=== PATIENT | female | born 1975 | race Caucasian/White ===

== ENCOUNTER 2019-07-07 06:00 | Outpatient (RCR) | payer OTHER, SELFPAY | END 2019-08-06 00:01 | LOC: SPT 06:00 | PROVIDERS: Family Provider Family Medicine; Visit Provider Nurse Practitioner Family | DX: M47.814 Spondylosis without myelopathy or radiculopathy, thoracic region (principal); M79.18 Myalgia, other site | CPT/HCPCS: 97110 ×3; 97112 ×2; 97140 ×7; 97164 ==

== ENCOUNTER 2019-08-07 06:00 | Outpatient (RCR) | payer OTHER, SELFPAY | END 2019-09-06 23:59 | disposition home or self-care (01) | LOC: SPT 06:00 | PROVIDERS: Family Provider Family Medicine; Referring Provider Nurse Practitioner Family; Visit Provider Nurse Practitioner Family | DX: M47.814 Spondylosis without myelopathy or radiculopathy, thoracic region (principal); M79.18 Myalgia, other site | CPT/HCPCS: 97110; 97112; 97140; 97164 ==

== ENCOUNTER 2019-09-07 06:00 | Outpatient (RCR) | payer OTHER, SELFPAY | END 2019-10-05 23:59 | disposition home or self-care (01) | LOC: SPT 06:00 | PROVIDERS: Family Provider Family Medicine; Referring Provider Nurse Practitioner Family; Visit Provider Nurse Practitioner Family | DX: M47.814 Spondylosis without myelopathy or radiculopathy, thoracic region (principal); M79.18 Myalgia, other site | CPT/HCPCS: 97110; 97112; 97164 ==

== ENCOUNTER 2019-10-06 06:00 | Outpatient (RCR) | payer OTHER, SELFPAY | END 2019-11-05 23:59 | disposition home or self-care (01) | LOC: SPT 06:00 | PROVIDERS: Family Provider Family Medicine; Referring Provider Nurse Practitioner Family; Visit Provider Nurse Practitioner Family | DX: M47.814 Spondylosis without myelopathy or radiculopathy, thoracic region (principal) | CPT/HCPCS: 97110; 97112 ==

== ENCOUNTER → 2020-03-31 14:54 | Outpatient (BNVA) | payer OTHER, SELFPAY | PROVIDERS: Family Provider Family Medicine; Referring Provider Dermatology; Visit Provider Dermatology | DX: L70.8 Other acne (principal); D22.9 Melanocytic nevi, unspecified; B35.1 Tinea unguium; L85.9 Epidermal thickening, unspecified | CPT/HCPCS: 99203 ==

== ENCOUNTER 2021-12-13 06:00 | Outpatient (RCR) | payer OTHER, SELFPAY | END 2022-01-04 23:59 | disposition home or self-care (01) | LOC: SPT 06:00 | PROVIDERS: PCP Family Medicine; Referring Provider Family Medicine; Visit Provider Family Medicine | DX: M79.672 Pain in left foot (principal) | CPT/HCPCS: 97110; 97161 ==

== ENCOUNTER 2022-01-05 06:00 | Outpatient (RCR) | payer OTHER, SELFPAY | END 2022-02-03 23:59 | disposition home or self-care (01) | LOC: SPT 06:00 | PROVIDERS: PCP Family Medicine; Referring Provider Family Medicine; Visit Provider Family Medicine | DX: M25.572 Pain in left ankle and joints of left foot (principal); M79.672 Pain in left foot | CPT/HCPCS: 97110 ==

== ENCOUNTER 2022-04-07 06:00 | Outpatient (RCR) | payer OTHER, SELFPAY | END 2022-05-06 23:59 | disposition home or self-care (01) | LOC: SPT 06:00 | PROVIDERS: PCP Family Medicine; Referring Provider Family Medicine; Visit Provider Family Medicine | DX: M25.572 Pain in left ankle and joints of left foot (principal); M79.672 Pain in left foot | CPT/HCPCS: 97110 ==

== ENCOUNTER 2022-05-07 06:00 | Outpatient (RCR) | payer OTHER, SELFPAY | END 2022-06-06 23:59 | disposition home or self-care (01) | LOC: SPT 06:00 | PROVIDERS: PCP Family Medicine; Referring Provider Family Medicine; Visit Provider Family Medicine | DX: M62.89 Other specified disorders of muscle (principal) | CPT/HCPCS: 97110 ==

== ENCOUNTER 2022-05-18 06:00 | Outpatient (RCR) | payer OTHER, SELFPAY | END 2022-06-06 23:59 | disposition home or self-care (01) | LOC: SPT 06:00 | PROVIDERS: PCP Family Medicine; Visit Provider Nurse Practitioner Family | DX: M62.89 Other specified disorders of muscle (principal) | CPT/HCPCS: 97110; 97161 ==

== ENCOUNTER 2022-06-07 06:00 | Outpatient (RCR) | payer OTHER, SELFPAY | END 2022-06-27 15:43 | disposition home or self-care (01) | LOC: SPT 06:00 | PROVIDERS: PCP Family Medicine; Referring Provider Family Medicine; Visit Provider Family Medicine | DX: M62.89 Other specified disorders of muscle (principal) | CPT/HCPCS: 97110; 97530 ==

== ENCOUNTER 2022-07-07 06:58 | Outpatient (CLI) | payer OTHER, SELFPAY ==
--- NOTE | 2022-07-07 | MR_ITS ---
WS: [id number] MRI LEFT ANKLE without CONTRAST. COMPARISON: 06/25/2007 Multiplanar, multisequence imaging is performed without contrast. History: LEFT calcaneal pain for 3 months. Prior peroneus tendon repair. Very small amount of edema involving the plantar surface of the calcaneus at the site of the plantar aponeurosis attachment. Increased T2 signal in the lateral plantar aponeurosis. There is a small tear versus fasciopathy. No spur is identified. The Achilles tendon is normal. There is a very small amount of fluid at the tibiotalar joint. Mild na rrowing of the tibiotalar joint. No fractures. The peroneus brevis and longus tendons are normal. Flexor hallucis longus is normal. The extensor and flexor tendon sheaths are normal. No tendon tears are identified. No loose body. Small amount of flu id adjacent to the os trigonum similar to the prior study which can be related to a posterior impinge ment syndrome. Mild increased signal within the tibiotalar ligament is appropriate. MR/MR ankle LT con* [id number] IMPRESSION: 1. Mild plantar fasciitis with a very small tear versus fasciopathy. 2. Small amount of marrow edema at the plantar aponeurosis insertion. 3. Os trigonum with a tiny amount of adjacent fluid. 4. No peroneus tendon abnormality.
== END 2022-07-07 06:59 | disposition home or self-care (01) ==
PROVIDERS: PCP Family Medicine; Visit Provider Nurse Practitioner Family
DX: M79.672 Pain in left foot (principal); R60.0 Localized edema
CPT/HCPCS: 73721

== ENCOUNTER 2022-07-08 07:05 | Outpatient (CLI) | payer OTHER, SELFPAY ==
--- NOTE | 2022-07-08 07:16 | MR_ITS ---
WS: [id number] MRI LUMBAR SPINE NONCONTRAST HISTORY: CHRONIC LOW BACK PAIN WITH SCIATICA COMPARISON: Radiograph 06/02/2022 TECHNIQUE: Sagittal and axial multisequence imaging is submitted. Normal lumbar alignment with no compression fractures or marrow edema. Disc spaces and vertebral body heights are well-preserved. Conus terminates normally at L1-2 disc level. L1-L2: Normal. L2-L3: Mild facet arthritis. No stenosis or disc protrusion. L3-L4: Mild facet arthritis. No stenosis or disc protrusion. L4-L5: Moderate ligamentum flavum hypertrophy and facet arthritis. Increase fluid in the facet joints . Very slight encroachment into the thecal sac. Very minimal central, subarticular recess and foramin al narrowing. L5-S1: Very slight annular disc bulging with moderate ligamentum flavum and facet arthritis. No disc protrusion. Very minimal narrowing of the neural foramina. Negative retroperitoneum. MR/MR lumbar spine wo con* [id number] IMPRESSION: 1. No high-grade central or foraminal stenosis. 2. Moderate facet joint arthritis and ligamentum flavum hypertrophy at L4-5 an d L5-S1. 3. Mild synovitis bilaterally at L4-5. 4. Very minimal central, subarticular recess and foraminal encroachment at L4- 5. 5. Minimal encroachment neural foramina at L5-S1.
== END 2022-07-08 07:06 | disposition home or self-care (01) ==
LOC: RAD 07:06
PROVIDERS: PCP Family Medicine; Visit Provider Nurse Practitioner Family
DX: M79.672 Pain in left foot (principal); M54.42 Lumbago with sciatica, left side; M54.41 Lumbago with sciatica, right side; M47.896 Other spondylosis, lumbar region; M65.88 Other synovitis and tenosynovitis, other site
CPT/HCPCS: 72148

== ENCOUNTER 2022-08-07 06:00 | Outpatient (RCR) | payer OTHER, SELFPAY | END 2022-09-06 23:59 | disposition home or self-care (01) | LOC: SPT 06:00 | PROVIDERS: PCP Family Medicine; Visit Provider Podiatrist Foot & Ankle Surgery | DX: M72.2 Plantar fascial fibromatosis (principal) | CPT/HCPCS: 97110; 97161 ==

== ENCOUNTER 2022-09-07 06:00 | Outpatient (RCR) | payer OTHER, SELFPAY | END 2022-10-04 23:59 | disposition home or self-care (01) | LOC: SPT 06:00 | PROVIDERS: PCP Family Medicine; Visit Provider Podiatrist Foot & Ankle Surgery | DX: M72.2 Plantar fascial fibromatosis (principal); M79.672 Pain in left foot | CPT/HCPCS: 97110 ==

== ENCOUNTER 2022-10-05 06:00 | Outpatient (RCR) | payer OTHER, SELFPAY | END 2022-11-04 23:59 | disposition home or self-care (01) | LOC: SPT 06:00 | PROVIDERS: PCP Family Medicine; Visit Provider Podiatrist Foot & Ankle Surgery | DX: M72.2 Plantar fascial fibromatosis (principal); M79.672 Pain in left foot | CPT/HCPCS: 97110 ==

== ENCOUNTER 2022-10-12 18:37 | Emergency (ER) | payer OTHER, SELFPAY ==
[2022-10-12 20:04] VITALS: BP 131/86; PULSE 96; RESP 18; TEMP 36.7; O2SAT 99; BMI 33.2
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
[2022-10-12 21:01] VITALS: BP 135/99; PULSE 103; RESP 17; TEMP 36.6; O2SAT 98
[2022-10-12 23:18] VITALS: BP 135/99; PULSE 103; RESP 17; TEMP 36.6; O2SAT 98
== END 2022-10-12 21:01 | disposition home or self-care (01) ==
PROVIDERS: Emergency Provider Nurse Practitioner Family; PCP Family Medicine
DX: S29.012A Strain of muscle and tendon of back wall of thorax, initial encounter (principal); S16.1XXA Strain of muscle, fascia and tendon at neck level, initial encounter; V89.2XXA Person injured in unspecified motor-vehicle accident, traffic, initial encounter
CPT/HCPCS: 99282

== ENCOUNTER 2022-11-02 06:00 | Outpatient (RCR) | payer OTHER, SELFPAY | END 2022-11-04 23:59 | disposition home or self-care (01) | LOC: SPT 06:00 | PROVIDERS: Visit Provider Family Medicine | DX: M54.50 Low back pain, unspecified (principal) | CPT/HCPCS: 20560; 97161 ==

== ENCOUNTER 2022-11-05 06:00 | Outpatient (RCR) | payer OTHER, SELFPAY | END 2022-12-04 23:59 | disposition home or self-care (01) | LOC: SPT 06:00 | PROVIDERS: PCP Family Medicine; Visit Provider Family Medicine | DX: M54.50 Low back pain, unspecified (principal) | CPT/HCPCS: 20561; 97110 ==

== ENCOUNTER 2022-12-05 06:00 | Outpatient (RCR) | payer OTHER, SELFPAY | END 2023-01-04 23:59 | disposition home or self-care (01) | LOC: SPT 06:00 | PROVIDERS: PCP Family Medicine; Visit Provider Family Medicine | DX: M54.50 Low back pain, unspecified (principal) | CPT/HCPCS: 20560; 20561; 97110 ==

== ENCOUNTER 2023-01-05 06:00 | Outpatient (RCR) | payer OTHER, SELFPAY | END 2023-02-03 23:59 | disposition home or self-care (01) | LOC: SPT 06:00 | PROVIDERS: PCP Family Medicine; Visit Provider Family Medicine | DX: M54.50 Low back pain, unspecified (principal) | CPT/HCPCS: 20560; 20561; 97110 ==

== ENCOUNTER 2023-01-23 07:55 | Outpatient (CLI) | payer OTHER, SELFPAY ==
--- NOTE | 2023-01-23 08:05 | CT_ITS ---
WS: [id number] CT NECK WITH CONTRAST HISTORY: TOOTHACHE TECHNIQUE: Contiguous 5 mm axial images are performed through the neck with intravenous contrast. Sag ittal and coronal reformats are also submitted. All CT scans at [facility] use at least one o f these dose optimization techniques: automated exposure control; mA and/or kV adjustment per patient size (includes targeted exams where dose is matched to clinical indication); or iterative reconstruc tion. CONTRAST: CONTRAST: Omnipaque 350; 100 mL IV. DLP: 224.97 mGy-cm. COMPARISON: None available. No soft tissue edema or swelling surrounding the RIGHT mandible or maxilla. No subperiosteal abscess. Focal lucency with mild bony expansion in the posterior RIGHT maxilla but no adjacent inflammation. Similar finding on the LEFT side. There is a very tiny 6 mm low-attenuation collection adjacent to th e RIGHT maxilla. Very nonspecific. Could be the residual of a prior treated abscess. There is a focal area of soft tissue thickening measuring 8 mm superficial to the RIGHT parotid gland . This may be a small epidermal cyst or lymph node. This does not extend to the parotid gland. The RI GHT parotid duct is also very mildly prominent and thickened as compared to the LEFT. No stones are i dentified. Nasopharynx, oropharynx, hypopharynx and larynx are unremarkable. No soft tissue masses or abnormal e nhancement. Torus tubarius and fossa of Rosenmuller and parapharyngeal fat are normal. No significant lymphadenopathy is identified. Normal appearance of the thyroid. No acute bone abnormalities. Visualized portions of the skull base demonstrate no abnormalities. Orbits and globes are within norm al limits. No soft tissue masses. Moderate mucoperiosteal retention cyst in the LEFT maxillary sinus. Lung apices are clear. CT/CT neck w con* [id number] IMPRESSION: 1. No subperiosteal abscess. 2. No mandibular fracture. 3. Lucencies in the posterior maxilla, bilateral and probably from prior tooth removal. 4. Adjacent to the posterior RIGHT maxilla is a 6 mm low-attenuation mass whic h could be the residual of a treated abscess. Very nonspecific and no acute inf lammation. 5. RIGHT parotid duct is mildly prominent as compared to the LEFT although the re is no obstruction and no stone at this time. Suspect RIGHT mild chronic paro tiditis. 6. Focal soft tissue, superficial nodule measures 8 mm. Nodule is at the level of the RIGHT parotid gland. Could be a very small lymph node or epidermoid/whitney aceous cyst.
[2023-01-23] MEDS: iohexol 350 mg/mL 500 mL Btl (per mL) IV (08:16)
== END 2023-01-23 07:56 | disposition home or self-care (01) ==
PROVIDERS: PCP Family Medicine; Visit Provider Nurse Practitioner
DX: R93.89 Abnormal findings on diagnostic imaging of other specified body structures (principal); K08.89 Other specified disorders of teeth and supporting structures
CPT/HCPCS: 70491; Q9967

== ENCOUNTER 2023-02-02 07:31 | Outpatient (CLI) | payer OTHER, SELFPAY ==
--- NOTE | 2023-02-02 | MM_ITS ---
WS: [email or web address] BILATERAL SCREENING DIGITAL TOMOSYNTHESIS MAMMOGRAM WITH CAD HISTORY: SCREENING, status post bilateral breast reduction. COMPARISON: 06/11/2019, 06/09/2021 Bilateral CC and MLO views with tomosynthesis and synthetic mammography submitted. Computer aided det ection analyzed. Breast composition: There are scattered areas of fibroglandular density. No suspicious masses, microc alcifications or architectural distortion. Asymmetries and distortion in the upper outer quadrant of each breast are similar to prior study from 2019. As per history bilateral breast reduction. MM/[place] [id number] IMPRESSION: BI-RADS: 2-Benign FOLLOW UP: 1 Year Follow-up
== END 2023-02-02 07:32 | disposition home or self-care (01) ==
PROVIDERS: PCP Family Medicine; Visit Provider Obstetrics & Gynecology
DX: Z12.31 Encounter for screening mammogram for malignant neoplasm of breast (principal)
CPT/HCPCS: 77063; 77067

== ENCOUNTER 2023-02-04 06:00 | Outpatient (RCR) | payer OTHER, SELFPAY | END 2023-03-06 23:59 | disposition home or self-care (01) | LOC: SPT 06:00 | PROVIDERS: PCP Family Medicine; Visit Provider Family Medicine | DX: M54.50 Low back pain, unspecified (principal) | CPT/HCPCS: 20560; 97110 ==

== ENCOUNTER 2023-03-07 06:00 | Outpatient (RCR) | payer OTHER, SELFPAY | END 2023-04-06 23:59 | disposition home or self-care (01) | LOC: SPT 06:00 | PROVIDERS: PCP Family Medicine; Visit Provider Family Medicine | DX: M54.50 Low back pain, unspecified (principal) | CPT/HCPCS: 20560; 20561; 97110 ==

== ENCOUNTER 2023-11-12 09:37 | Emergency (ER) | payer SELFPAY ==
[2023-11-12 09:38] VITALS: PULSE 103; RESP 18; TEMP 36.6; O2SAT 98; BMI 35.4
[2023-11-12 09:46] VITALS: BP 153/109; PULSE 116; RESP 22; O2SAT 100
--- NOTE | 2023-11-12 09:50 | ED_ITS ---
HPI - Female Genitourinary General: Chief complaint: Urogenital-Female Stated complaint: trouble urinating Time Seen by Provider: 11/12/23 09:48 Source: patient Mode of arrival: ambulatory Limitations: no limitations History of Present Illness: Patient is a nice 48-year-old female presents to ED today with a complaint of urinary symptoms. She states over the past 2 days she has had extreme burning w ith urination, suprapubic burning pain, urinary urgency, frequency with small voids, urinary hesitancy. She has no complaints of back or flank pain. No vomiting. Patient states she has been using Pyridium at home. No history of frequent UTIs. No history of kidney or ureterolithiasis. No vaginal discharge, odor, itching, or concern for STI. MD elicited complaint: dysuria, UTI and difficulty urinating Onset (ago): day(s) Severity: severe Female Urogenital Radiation: Suprapubic Quality of pain: burning Consistency: constant Vaginal discharge: none Vaginal bleeding: none Urinary symptoms: Difficulty Urinating, Dysuria, Frequency and Urgency Exacerbating factors: urination Relieving factors: none Associated symptoms: Reports nausea; Deny abdominal pain Treatment prior to arrival: other (Pyridium) Patient : No Review of Systems Const: Denies: fever(s), chills, body aches, fatigue or malaise GI: Reports: nausea; Denies: abdominal pain, vomiting or change in bowel habits : Reports: difficulty voiding, dysuria, urinary frequency, urinary urgency, urinary hesitancy and dribbling; Denies: flank pain or pelvic pain Musc: Denies: back pain Skin/Breast: Denies: rash PFSH ED PFSH: Medical History Misbah disease Surgical History H/O knee surgery History of nasal surgery Hx of breast reduction, elective Family History Other Squamous cell cancer of external ear Social History Smoking and tobacco/nicotine status: never used tobacco/nicotine Alcohol intake: current Alcohol intake frequency: few times a month Physical Exam Const: COMMON NORMALS: patient oriented x3, no limitations, alert and well nourished GENERAL APPEARANCE: cooperative and in distress (appears uncomfortable-reporting suprapubic discomfort) Resp: COMMON NORMALS: normal respiratory effort and clear to auscultation bilaterally AUSCULTATION: clear to auscultation bilaterally Cardio: COMMON NORMALS: regular rhythm RATE: tachycardic RHYTHM: regular rhythm GI: COMMON NORMALS: Normal to inspection, nondistended, normoactive bowel sounds present, Soft to palpation, No hepatosplenomegaly present and no masses INSPECTION: Yes normal to inspection PALPATION: Yes Soft to palpation, Yes Tenderness to palpation present (GI) (suprapubic), No Guarding due to palpation present (GI), No Rigid due to palpation and Yes No hepatosplenomegaly present : COMMON NORMALS: Yes no CVA tenderness BLADDER/KIDNEY EXAM: Yes no CVA tenderness Back/Pelvis: COMMON NORMALS: no CVA tenderness Neuro: COMMON NORMALS: patient oriented x3 SENSORIUM/ORIENTATION: Yes alert Course Vital Signs: Vital signs: Vital Signs Temperature 97.9 F 11/12/23 09:38 Pulse Rate 116 H 11/12/23 09:46 Respiratory Rate 22 H 11/12/23 09:46 Blood Pressure 153/109 11/12/23 09:46 Pulse Oximetry 100 11/12/23 09:46 Oxygen Delivery Me thod Room Air 11/12/23 09:46 MDM - Female Medical Decision Making Significant color interference on patient's urine secondary to her Pyridium use. Patient's symptoms are consistent with acute cystitis. She is not having any back or flank pain. No fevers or vomiting. Patient was given IM Rocephin and will be placed on Keflex. Return to ED precautions given. Patient was initially tachycardic upon arrival and visibly uncomfortable. On reassessment heart rate has improved and she clinically appears more comfortable after IM Toradol. History does not seem consistent with a nephro/ureterolithiasis. Bladder scan was normal. Medical Records I reviewed the patient's medical records. Lab Data I reviewed the patient's lab results. Laboratory Results HCG, Qual Negative (Negative) 11/12/23 10:12 Urine Color Dutton (Yellow) A 11/12/23 10:12 Urine Appearance Clear (CLEAR) 11/12/23 10:12 Urine pH TNP 11/12/23 10:12 Ur Specific Sabin TNP 11/12/23 10:12 Urine Protein TNP 11/12/23 10:12 Urine Glucose (UA) TNP 11/12/23 10:12 Urine Ketones TNP 11/12/23 10:12 Urine Blood TNP 11/12/23 10:12 Urine Nitrate TNP 11/12/23 10:12 Urine Bilirubin TNP 11/12/23 10:12 Prot Sulfosalicylic Acd Negative (Negative) 11/12/23 10:12 Urine Urobilinogen TNP 11/12/23 10:12 Ur Leukocyte Esterase TNP 11/12/23 10:12 Urine RBC None /hpf (0-2) 11/12/23 10:12 Urine WBC 5-10 /hpf (0-5) H 11/12/23 10:12 Ur Squamous Epith Cells 5-10 /hpf (0-5) H 11/12/23 10:12 Amorphous Sediment Not Reportable 11/12/23 10:12 Urine Bacteria Trace /hpf (NONE) 11/12/23 10:12 Urine Mucus 1+ /hpf 11/12/23 10:12 No radiology studies performed this visit Discharge Plan Discharge Patient Disposition: Home Clinical Impression: Acute cystitis Qualifiers: Hematuria presence: without hematuria Qualified Code(s): N30.00 - Acute cystitis without hematuria Condition: Stable Prescriptions: New cephalexin 500 mg capsule 500 mg PO Q6H 7 Days Qty: 28 0RF Pyridium 200 mg tablet 200 mg PO Q8H Qty: 6 0RF No Action pantoprazole 40 mg tablet,delayed release (DR/EC) 40 mg PO DAILY PRN (Reason: Acid Reflux) prednisone 5 mg tablet 5 mg PO DAILY alprazolam 0.25 mg tablet 0.25 mg PO TID PRN (Reason: Anxiety) Vitamin D2 1,250 mcg (50,000 unit) capsule 1,250 mcg PO Q7D Rx Instructions: ON MONDAY Linzess 145 mcg capsule 145 mcg PO QAM Discharge Orders: Discharge ED (Routine); Ordered 11/12/23 Ordered By: Renetta Alicea Referrals: Kimo Sanchez MD [Primary Care Provider] - Patient Instructions: Urinary Tract Infection in Women (DC), Dysuria (ED) Activity Restrictions/Additional Instructions: Will antibiotics and start them immediately. Continue to consume plenty of water. You need to return to the emergency department for worsening pain, back/flank pain, repetitive episodes of vomiting, fevers greater than 100.4, inability to hold down your antibiotics, or any other concerns you may have. Coding Level of Care Code ED Manager Research And Development for Vickie Sampson
[2023-11-12] MEDS: ketorolac 60 mg/2 mL INJ IM (10:13)
[2023-11-12 10:21] LABS: HCG Qualitative Urine. Negative (Negative)
[2023-11-12 10:25] LABS: Urine Appearance Clear (CLEAR); Urine Color Orange (Yellow)
[2023-11-12 10:26] LABS: Sulfosalicylic Acid Urine Negative (Negative)
[2023-11-12 10:27] LABS: Add Urine Culture? No; Add Urine Microscopic? YES; Bacteria Urine TRACE /hpf; Mucus Urine 1+ /hpf
[2023-11-12] MEDS: cefTRIAXone 1,000 MG in water for injection-sterile 2.1 ML 2 MG IM (10:45)
--- NOTE | 2023-11-12 10:52 | PC.NURSE ---
BLADDER SCAN PERFORMED. 1 ML URINE HIGHEST READING.
[2023-11-12 11:09] VITALS: BP 134/87; PULSE 98; RESP 16; O2SAT 100
== END 2023-11-12 11:14 | disposition home or self-care (01) ==
PROVIDERS: Emergency Provider Physician Assistant; PCP Family Medicine
DX: N30.00 Acute cystitis without hematuria (principal)
CPT/HCPCS: 81001; 81025; 96372; 99284; J0696; J1885

== ENCOUNTER 2024-06-04 14:04 | Outpatient (RCR) | payer OTHER, SELFPAY | END 2024-06-06 23:59 | disposition home or self-care (01) | LOC: SPT 14:04 | PROVIDERS: Visit Provider Student in an Organized Health Care Education/Training Program | DX: G89.4 Chronic pain syndrome (principal) | CPT/HCPCS: 97161 ==

== ENCOUNTER 2024-06-07 06:00 | Outpatient (RCR) | payer OTHER, SELFPAY | END 2024-07-06 23:59 | disposition home or self-care (01) | LOC: SPT 06:00 | PROVIDERS: Visit Provider Student in an Organized Health Care Education/Training Program | DX: G89.4 Chronic pain syndrome (principal) | CPT/HCPCS: 97110 ==

== ENCOUNTER 2024-07-07 06:00 | Outpatient (RCR) | payer OTHER, SELFPAY | END 2024-08-06 23:59 | disposition home or self-care (01) | LOC: SPT 06:00 | PROVIDERS: Visit Provider Student in an Organized Health Care Education/Training Program | DX: G89.4 Chronic pain syndrome (principal) | CPT/HCPCS: 97110 ==

== ENCOUNTER 2024-08-07 06:00 | Outpatient (RCR) | payer OTHER, SELFPAY | END 2024-09-06 23:59 | disposition home or self-care (01) | LOC: SPT 06:00 | PROVIDERS: Visit Provider Student in an Organized Health Care Education/Training Program | DX: G89.4 Chronic pain syndrome (principal) | CPT/HCPCS: 97110 ==

== ENCOUNTER 2024-09-07 06:30 | Outpatient (RCR) | payer OTHER, SELFPAY | END 2024-10-04 23:59 | disposition home or self-care (01) | LOC: SPT 06:30 | PROVIDERS: Visit Provider Student in an Organized Health Care Education/Training Program | DX: G89.4 Chronic pain syndrome (principal) | CPT/HCPCS: 97110 ==

== ENCOUNTER 2024-10-05 06:00 | Outpatient (RCR) | payer OTHER, SELFPAY | END 2024-11-04 23:59 | disposition home or self-care (01) | LOC: SPT 06:00 | PROVIDERS: Visit Provider Student in an Organized Health Care Education/Training Program | DX: G89.4 Chronic pain syndrome (principal) | CPT/HCPCS: 97110 ==

== ENCOUNTER 2024-11-05 05:00 | Outpatient (RCR) | payer OTHER, SELFPAY | END 2024-12-04 23:59 | disposition home or self-care (01) | LOC: SPT 05:00 | PROVIDERS: PCP Family Medicine; Visit Provider Student in an Organized Health Care Education/Training Program | DX: G89.4 Chronic pain syndrome (principal) | CPT/HCPCS: 97110 ==

== ENCOUNTER 2024-12-05 05:00 | Outpatient (RCR) | payer OTHER, SELFPAY | END 2025-01-04 05:00 | disposition home or self-care (01) | LOC: SPT 05:00 | PROVIDERS: PCP Family Medicine; Visit Provider Student in an Organized Health Care Education/Training Program | DX: G89.4 Chronic pain syndrome (principal) | CPT/HCPCS: 97110 ==

== ENCOUNTER 2025-01-05 05:00 | Outpatient (RCR) | payer OTHER, SELFPAY | END 2025-01-14 08:21 | disposition home or self-care (01) | LOC: SPT 05:00 | PROVIDERS: PCP Family Medicine; Visit Provider Student in an Organized Health Care Education/Training Program | DX: G89.4 Chronic pain syndrome (principal) | CPT/HCPCS: 97110 ==

== ENCOUNTER 2025-01-07 07:52 | Outpatient (CLI) | payer OTHER, SELFPAY ==
--- NOTE | 2025-01-07 08:05 | NM_ITS ---
WS: [id number] NUCLEAR MEDICINE HIDA SCAN CLINICAL INFORMATION: ABD PAIN, NAUSEA TECHNIQUE: Following intravenous administration of 7.9 mCi of technetium 99m mebrofenin, images of the abdomen were obtained over the course of 60 minutes. Next, gallbladder ejection fraction was determined by obtaining preprandial and one-hour postprandial images of the gallbladder following oral ingestion of Ensure. FINDINGS: Normal hepatic uptake at 5 minutes. Normal hepatic excretion. Gallbladder is visualized by 10 minutes. No evidence of acute cholecystitis. Small bowel and common bile duct are visualized. Gallbladder ejection fraction 30% compatible with gallbladder dysfunction. Recommend correlation for chronic cholecystitis. NM/NM hepatobiliary w phar* [id number] IMPRESSION: 1. No evidence of acute cholecystitis. 2. Gallbladder ejection fraction decreased at 30% compatible with gallbladder dysfunction. Recommend correlation with history of gallbladder dysfunction and chronic cholecystitis. Gallbladder could be further evaluated with ultrasound. No recent ultrasound available. Comparison 2010 HIDA scan now available also demonstrated decreased gallbladder ejection fraction at 30%. Findings are similar compared to 2010.
== END 2025-01-07 07:53 | disposition home or self-care (01) ==
PROVIDERS: PCP Family Medicine; Visit Provider Family Medicine
DX: R10.13 Epigastric pain (principal); R93.3 Abnormal findings on diagnostic imaging of other parts of digestive tract
CPT/HCPCS: 78227; A9537

== ENCOUNTER 2025-02-17 16:23 | Outpatient (CLI) | payer OTHER, SELFPAY ==
--- NOTE | 2025-02-17 16:29 | CT_ITS ---
WS: [id number] CT ABDOMEN AND PELVIS WITH CONTRAST HISTORY: UNSPECIFIED ABDOMINAL PAIN TECHNIQUE: Imaging performed of the abdomen and pelvis with IV contrast. Single phase imaging of the abdomen. Coronal and sagittal reformats are submitted. All CT scans at [facility] use at least one of these dose optimization techniques: automated exposure control; mA and/or kV adjustment per patient size (includes targeted exams where dose is matched to clinical indication); or iterative reconstruction. IV CONTRAST: Omnipaque 350; 100 mL IV. Oral contrast: No DLP: 712.19 mGy.cm COMPARISON: 04/22/2010, ultrasound 01/29/2025 Lower thorax: Lung bases are clear. Heart is normal size. No hiatal hernia. Liver/biliary system: Normal size with no intrahepatic dilatation. Gallbladder: Gallbladder is slightly contracted with no adjacent inflammation. This may be due to a nonfasting state. Pancreas: No change in appearance of the pancreas. There is a very tiny low- attenuation area in the pancreatic head which may be fat. This was also present on the study from 2009. Spleen: Normal size spleen. No mass or infarct. Adrenal glands: Normal. Right kidney: Normal. Left kidney: Normal. Aorta: Normal. Lymphadenopathy: None. Free fluid: None. GI tract: High density foci within the stomach may be medicinal tablets. No GI tract obstruction. Normal appendix. Mild diffuse constipation. No obstructing lesions are identified. Abdominal wall: Fat-containing umbilical hernia. Orifice measures 1.6 cm. Pelvis: No free fluid or adenopathy within the pelvis. Normal position of the uterus. Small bilateral ovarian follicles. Bones: LEFT unilateral L5 pars defect. CT/CT abdomen pelvis w con* [id number] IMPRESSION: 1. No GI tract obstruction. Mild diffuse constipation. 2. Normal appendix. 3. No renal obstruction. 4. Gallbladder is slightly contracted which is probably due to a nonfasting st ate. No additional abnormal findings to suggest acute cholecystitis. 5. Small umbilical hernia containing fat only.
[2025-02-17] MEDS: iohexol 350 mg/mL 500 mL Btl (per mL) IV (16:40)
== END 2025-02-17 16:24 | disposition home or self-care (01) ==
LOC: RAD 16:24
PROVIDERS: PCP Family Medicine; Visit Provider Family Medicine
DX: K42.9 Umbilical hernia without obstruction or gangrene (principal); K59.00 Constipation, unspecified
CPT/HCPCS: 74177

== ENCOUNTER → 2025-04-09 08:18 | Outpatient (BNVA) | payer OTHER, SELFPAY | PROVIDERS: PCP Family Medicine; Visit Provider Student in an Organized Health Care Education/Training Program | DX: M25.562 Pain in left knee (principal); M17.12 Unilateral primary osteoarthritis, left knee; Z01.89 Encounter for other specified special examinations | CPT/HCPCS: 73560; 73565 ==

== ENCOUNTER 2025-06-17 14:56 | Emergency (ER) | payer OTHER, SELFPAY ==
--- OUTSIDE RECORDS SUMMARY | 2024-06-02 03:00 | XMS_ITS ---
Author Organization [facility] Address [address] [place] [address] Care Team Providers Care Software Implementation Specialist Name Role Phone Kimo Sanchez Primary Care Provider Unavailabl e Amee Barker Unavailable [phone] Migration, Provider Unavailable Unavailable REASON FOR VISIT EMR-Lee Encounters Encounter Location Date Provider Diagnosis Migrated_Facility 0 0 06/02/2024 Provider Migration Plan Of Treatment No Information Progress Notes * [facility]LEY SophiaB:1975 ([age] yo F)Acc No.[id number]:06/02/2024 Patient: Lisa VELASQUEZ :1975 A ge:48 Y S ex:Female Address:[address] [place], [address] Subjective: * Chief Complaints: * E MR-Lee * * Date:
--- OUTSIDE RECORDS SUMMARY | 2024-08-18 08:03 | XMS_ITS ---
Author Organization [facility] Address [address] [place] [address] Care Team Providers Care Real Estate Clerk Name Role Phone Kimo Sanchez Primary Care Provider Amee Dangelo [phone] REASON FOR VISIT prechart Social History Tobacco Use: Social History Observation Description Date Details (start date - stop date) Never Smoker NA - NA Social History Tobacco Use: Social Info Question Answer Notes Tobacco Control (Standard) Tobacco use: Nonsmoker Additional Details Category Social Info Options Details Drugs/Alcohol: Do you drink alcohol? Yes. 2-3 drinks per week Problems Problem Type SNOMED Code ICD Code Onset Dates Problem Status W/U Status Risk Notes Problem Chronic pain syndrome (511620727) Chronic pain syndrome (G89.4) Active confirmed Problem Lumbosacral radiculopathy (1808889) Radiculopathy of lumbosacral region (M54.17) Active confirmed Encounters Encounter Location Date Provider Diagnosis [facility] [address] [place] [place] [address] 08/18/2024 Amee villeda Chronic pain syndrome G89.4 ; Radiculopathy of lumbosacral region M54.17 ; Synovial cyst of lumbar facet joint M71.38 ; Impaired mobility and activities of daily living Z74.09 ; Disorders of sacrum M53.3 ; Acute pain of right hip M25.551 and Myalgia, other site M79.18 Assessments Encounter Date Diagnosis (ICD Code) Assessment Notes Treatment Notes Treatment Clinical Notes Section Notes 08/18/2024 Chronic pain syndrome (ICD-10 - G89.4) Ms. Sutton is a very pleasant patient that has imaging, history, and physical exam consistent with pain generated from radiculopathy of the lumbosac ral region. Patient has tried conservative measures including medication with limited benefit including medications to include gabapentin if they could tolerate it and physical therapy including home exercise regimen under a physician?s guidance for at least 6 weeks. They have had a decrease in their quality of life as a result of this pain. This pain is impairing their ability to perform ADLs and care for their family. This pain is also interfering with their ability to work. They now have had to increase their medication use. It is medically necessary to proceed with this procedure, risks and expectations of the procedure where discussed with the patient and they agreed to proceed. The options for treatment were explained in detail, this included PT, medications, injections, lifestyle modifications and exercise. Proceed a right L4/5 facet joint cyst aspiration with a right L4/5 transforaminal epidural steroid injection after reviewing the disc 08/18/2024 Radiculopathy of lumbosacral region (ICD-10 - M54.17) Ms. Sutton is a very pleasant patient that has imaging, history, and physical exam consistent with pain generated from radiculopathy of the lumbosac ral region. Patient has tried conservative measures including medication with limited benefit including medications to include gabapentin if they could tolerate it and physical therapy including home exercise regimen under a physician?s guidance for at least 6 weeks. They have had a decrease in their quality of life as a result of this pain. This pain is impairing their ability to perform ADLs and care for their family. This pain is also interfering with their ability to work. They now have had to increase their medication use. It is medically necessary to proceed with this procedure, risks and expectations of the procedure where discussed with the patient and they agreed to proceed. The options for treatment were explained in detail, this included PT, medications, injections, lifestyle modifications and exercise. Proceed a right L4/5 facet joint cyst aspiration with a right L4/5 transforaminal epidural steroid injection after reviewing the disc 08/18/2024 Synovial cyst of lumbar facet joint (ICD-10 - M71.38) Ms. Sutton is a very pleasant patient that has imaging, history, and physical exam consistent with pain generated from radiculopathy of the lumbosac ral region. Patient has tried conservative measures including medication with limited benefit including medications to include gabapentin if they could tolerate it and physical therapy including home exercise regimen under a physician?s guidance for at least 6 weeks. They have had a decrease in their quality of life as a result of this pain. This pain is impairing their ability to perform ADLs and care for their family. This pain is also interfering with their ability to work. They now have had to increase their medication use. It is medically necessary to proceed with this procedure, risks and expectations of the procedure where discussed with the patient and they agreed to proceed. The options for treatment were explained in detail, this included PT, medications, injections, lifestyle modifications and exercise. Proceed a right L4/5 facet joint cyst aspiration with a right L4/5 transforaminal epidural steroid injection after reviewing the disc 08/18/2024 Impaired mobility and activities of daily living (ICD-10 - Z74.09) Ms. Sutton is a very pleasant patient that has imaging, history, and physical exam consistent with pain generated from radiculopathy of the lumbosac ral region. Patient has tried conservative measures including medication with limited benefit including medications to include gabapentin if they could tolerate it and physical therapy including home exercise regimen under a physician?s guidance for at least 6 weeks. They have had a decrease in their quality of life as a result of this pain. This pain is impairing their ability to perform ADLs and care for their family. This pain is also interfering with their ability to work. They now have had to increase their medication use. It is medically necessary to proceed with this procedure, risks and expectations of the procedure where discussed with the patient and they agreed to proceed. The options for treatment were explained in detail, this included PT, medications, injections, lifestyle modifications and exercise. Proceed a right L4/5 facet joint cyst aspiration with a right L4/5 transforaminal epidural steroid injection after reviewing the disc 08/18/2024 Disorders of sacrum (ICD-10 - M53.3) Ms. Sutton is a very pleasant patient that has imaging, history, and physical exam consistent with pain generated from radiculopathy of the lumbosac ral region. Patient has tried conservative measures including medication with limited benefit including medications to include gabapentin if they could tolerate it and physical therapy including home exercise regimen under a physician?s guidance for at least 6 weeks. They have had a decrease in their quality of life as a result of this pain. This pain is impairing their ability to perform ADLs and care for their family. This pain is also interfering with their ability to work. They now have had to increase their medication use. It is medically necessary to proceed with this procedure, risks and expectations of the procedure where discussed with the patient and they agreed to proceed. The options for treatment were explained in detail, this included PT, medications, injections, lifestyle modifications and exercise. Proceed a right L4/5 facet joint cyst aspiration with a right L4/5 transforaminal epidural steroid injection after reviewing the disc 08/18/2024 Acute pain of right hip (ICD-10 - M25.551) Ms. Sutton is a very pleasant patient that has imaging, history, and physical exam consistent with pain generated from radiculopathy of the lumbosac ral region. Patient has tried conservative measures including medication with limited benefit including medications to include gabapentin if they could tolerate it and physical therapy including home exercise regimen under a physician?s guidance for at least 6 weeks. They have had a decrease in their quality of life as a result of this pain. This pain is impairing their ability to perform ADLs and care for their family. This pain is also interfering with their ability to work. They now have had to increase their medication use. It is medically necessary to proceed with this procedure, risks and expectations of the procedure where discussed with the patient and they agreed to proceed. The options for treatment were explained in detail, this included PT, medications, injections, lifestyle modifications and exercise. Proceed a right L4/5 facet joint cyst aspiration with a right L4/5 transforaminal epidural steroid injection after reviewing the disc 08/18/2024 Myalgia, other site (ICD-10 - M79.18) Ms. Sutton is a very pleasant patient that has imaging, history, and physical exam consistent with pain generated from radiculopathy of the lumbosac ral region. Patient has tried conservative measures including medication with limited benefit including medications to include gabapentin if they could tolerate it and physical therapy including home exercise regimen under a physician?s guidance for at least 6 weeks. They have had a decrease in their quality of life as a result of this pain. This pain is impairing their ability to perform ADLs and care for their family. This pain is also interfering with their ability to work. They now have had to increase their medication use. It is medically necessary to proceed with this procedure, risks and expectations of the procedure where discussed with the patient and they agreed to proceed. The options for treatment were explained in detail, this included PT, medications, injections, lifestyle modifications and exercise. Proceed a right L4/5 facet joint cyst aspiration with a right L4/5 transforaminal epidural steroid injection after reviewing the disc Plan Of Treatment No Information History and Physical Notes * HPI (History of Present Illness) Category Sub-Category Detail Notes Category Not es Provider Note (05/21/2024) Patient presents today for re-evaluation. On 04/16/2024, she had a right SI joint injection, and she reports minimal relief from the procedure. However, upon SI provocative maneuvers, she does not experience any pain in the SI joint anymore. Pain is in her lower back that radiates into her right anterior thigh that has changed since the procedure. She denies any bowel or bladder incontinence. Reviewing her MRI, she has a synovial cyst at the right 4-5 facet measuring 5 mm, which narrows the right lateral recess and abuts the transitioning right L5 nerve root. This potentially could be a source of her pain. She will bring in the disc for me to be able to look at that cyst more closely. Pain Details Pain Location lower back Quality Aching, Burning, Radha p, Throbbing Severity of average pain 4/10 Severity of pain right now 4/10 Opioid Assessment Tools [facility] ption Monitoring Program found to be consistent with treatment history, reviewed today Treatment History When was prior treat ment started? When the home remedies and OTCs did not work Progress Notes * Sophia SUTTONB:1975 ([age] yo F)Acc No.[id number]:08/18/2024 Patient: Lisa VELASQUEZ :1975 A ge:49 Y S ex:Female Address:[address] [place] [address], [id number] Subjective: * Chief Complaints: * P rechart * HPI: P ain Details: Pain Location l ower back . Quality A leandro, Burning, Deep, Throbbing. Severity of average pain 4 /10. Severity of pain right now 4 /10. O pioid Assessment Tools: [place] Prescription Monitoring Program f ound to be consistent with treatment history, reviewed today. T reatment History: When was prior treatment started? W hen the home remedies and OTCs did not work . P marisabel Note: (05/21/2024) Patient presents today for re-evaluation. On 04/16/2024, she had a right SI joint injection, and she reports minimal relief from the procedure. However, upon SI provocative maneuvers, she does not experience any pain in the SI joint anymore. Pain is in her lower back that radiates into her right anterior thigh that has changed since the procedure. She denies any bowel or bladder incontinence. Reviewing her MRI, she has a synovial cyst at the right 4-5 facet measuring 5 mm, which narrows the right lateral recess and abuts the transitioning right L5 nerve root. This potentially could be a source of her pain. She will bring in the disc for me to be able to look at that cyst more closely. * ROS: G eneral - Multi System: Constitutional D enies fever, fatigue, weight gain, weight loss, poor appetite, sleep difficulty . E ar, Nose, Mouth, Throat R eports using corrective lenses/contacts. Denies ringing in ears, ear pain, cataract, headache, glaucome, sore throat.?Cardiovascular d enies chest pain, palpitations, swelling in hands/feet, shortness of breath. R espiratory D enies trouble breathing, cough, asthma, COPD/emphysema, Wheezing, snoring.?Gastrointestinal R eports gastroesophageal reflux. Denies nausea, vomiting, constipation, abdominal pain, diarrhea . G enitourinary D enies incontinence, painful urination, bloody urine, sexual dysfunction, difficulty starting urination. M usculoskeletal R eports back pain, joint pain. Denies neck pain, joint swelling . I ntegumentary D enies rash, ulcer, skin cancer, skin infection . N eurologic D enies headache, weakness, trouble with memory, trouble with concentrating, excessive sedation, gait unsteadiness/falls. P sychiatric?Reports anxiety, Denies depression, insomina, panic attack, suicidal ideation . E ndocrine System D enies excessive thirst, heat or cold intolerance, frequent infections, rheumatoid arthritis, diabetes, lupus, HIV/AIDS. * Family History: cancer, diabetes, high blood pressure. * Social History: T obacco Use: T obacco Control (Standard) T obacco use: N onsmoker D rugs/Alcohol: D o you drink alcohol?: Yes. 2-3 drinks per week. Assessment: * Assessment: 1. C hronic pain syndrome - G89.4 (Primary) 2 . R adiculopathy of lumbosacral region - M54.17 3 . S ynovial cyst of lumbar facet joint - M71.38 ?4. I mpaired mobility and activities of daily living - Z74.09 5 . D isorders of sacrum - M53.3 6 . A cute pain of right hip - M25.551 7 . M yalgia, other site - M79.18 Ms. Sutton is a very pleasant patient that has imaging, history, and physical exam consistent with pain generated from radiculopathy of the lumbosacral region. Patient has tried conservative measures including medication with limited benefit including medications to include gabapentin if they could tolerate it and physical therapy including home exercise regimen under a physician?s guidance for at least 6 weeks. They have had a decrease in their quality of life as a result of this pain. This pain is impairing their ability to perform ADLs and care for their family. This pain is also interfering with their ability to work. They now have had to increase their medication use. It is medically necessary to proceed with this procedure, risks and expectations of the procedure where discussed with the patient and they agreed to proceed. The options for treatment were explained in detail, this included PT, medications, injections, lifestyle modifications and exercise. Proceed a right L4/5 facet joint cyst aspiration with a right L4/5 transforaminal epidural steroid injection after reviewing the disc * * Date:
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
--- NOTE | 2025-06-17 14:58 | ECG_ITS ---
[facility] Test Date: 2025-06-17 Pat Name: Lisa Morrison Department: Room: Gender: Female Special Education Resource Teacher: : 1975 Requested By: Renetta Alicea Order Number: [id number] Reading MD: Measurements Intervals [place] Rate: 126 P: 31 SD: 138 QRS: 54 QRSD: 89 T: 52 QT: 315 QTc: 457 Interpretive Statements SINUS TACHYCARDIA ABNORMAL RHYTHM ECG [email or web address]
[2025-06-17 14:59] VITALS: BP 121/81; PULSE 131; RESP 18; TEMP 36.4; O2SAT 99; BMI 32.5
--- OUTSIDE RECORDS SUMMARY | 2025-06-17 15:04 | XMS_ITS | Encounter Summary ---
Author Organization [facility] Address [address] [place] [address] Care Team Providers Care Senior Civil Engineer Name Role Phone Kimo Sanchez MD Primary Care Provider [phone] Encounter Details Date Type Department Care Team (Latest Contact Info) Description 11/05/2003 Outpatient Historical [facility] [address] [place] [address] Sergio Ruiz MD NO ADDRESS ON FILE JOINT PAIN-L/LEG (Primary Dx) Social History Tobacco Use Types Packs/Day Years Used Date Smoking Tobacco: Never Assessed Comments Unknown Sex and Gender Information Value Date Recorded Sex Assigned at Not on file 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
--- OUTSIDE RECORDS SUMMARY | 2025-06-17 15:04 | XMS_ITS | Encounter Summary ---
Author Organization [facility] Address [address] [place] [address] Care Team Providers Care Electrotyper Apprentice Name Role Phone Kimo Sanchez MD Primary Care Provider [phone] Encounter Details Date Type Department Care Team (Latest Contact Info) Description 09/14/1999 Outpatient Historical [facility] [address] [place] [address] Dago Mackenzie MD [address] [facility] [address] [place] [address] Abdominal pain, generalized (Primary Dx) Social History Tobacco Use Types Packs/Day Years Used Date Smoking Tobacco: Never Assessed Comments Unknown Sex and Gender Information Value Date Recorded Sex Assigned at Not on file 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
--- OUTSIDE RECORDS SUMMARY | 2025-06-17 15:04 | XMS_ITS | Encounter Summary ---
Author Organization [facility] Address [address] [place] [address] Care Team Providers Care Flat Machine Cutter Name Role Phone Kimo Sanchez MD Primary Care Provider [phone] Encounter Details Date Type Department Care Team (Late st Contact Info) Description 10/20/1999 Outpatient Historical [facility] Dago Mackenzie MD [address] 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
--- OUTSIDE RECORDS SUMMARY | 2025-06-17 15:04 | XMS_ITS | Encounter Summary ---
Author Organization [facility] Address [address] [place] [address] Care Team Providers Care Endoscopic Technician Name Role Phone Kimo Sanchez MD Primary Care Provider [phone] Encounter Details Date Type Department Care Team (Latest Contact Info) Description 10/22/2003 Outpatient Historical [facility] [address] [place] [phone] Tom Casillas, Jose R Draper MD NO ADDRESS ON FILE Routine medical exam (Primary Dx); Gynecologic examination Social History Tobacco Use Types Packs/Day Years Used Date Smoking Tobacco: Never Assessed Comments Unknown Sex and Gender Information Value Date Recorded Sex Assigned at Not on file 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
--- OUTSIDE RECORDS SUMMARY | 2025-06-17 15:04 | XMS_ITS | Encounter Summary ---
Author Organization [facility] Address [address] [place] [address] Care Team Providers Care Arcade Attendant Name Role Phone Kimo Sanchez MD Primary Care Provider Encounter Details Date Type Department Care Team (Latest Contact Info) Description 12/19/[address] 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
--- OUTSIDE RECORDS SUMMARY | 2025-06-17 15:04 | XMS_ITS | Encounter Summary ---
Author Organization [facility] Address [address] [place] [address] Care Team Providers Care Wire Cutter Name Role Phone Kimo Sanchez MD Primary Care Provider [phone] Encounter Details Date Type Department Care Team (Latest Contact Info) Description 12/21/1999 Outpatient Historical [facility] [address] [place] [address] Dago Mackenzie MD [address] [facility] [address] [place] [address] Benign neoplasm of skin, site unspecified (Primary Dx) Social History Tobacco Use Types Packs/Day Years Used Date Smoking Tobacco: Never Assessed Comments Unknown Sex and Gender Information Value Date Recorded Sex Assigned at Not on file 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
--- OUTSIDE RECORDS SUMMARY | 2025-06-17 15:04 | XMS_ITS | Encounter Summary ---
Author Organization [facility] Address [address] [place] [address] Care Team Providers Care Canvas Cutter Machine Name Role Phone Kimo Sanchez MD Primary Care Provider [phone] Encounter Details Date Type Department Care Team (Latest Contact Info) Description 12/30/2003 Outpatient Historical [facility] Medicine [address] 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
--- OUTSIDE RECORDS SUMMARY | 2025-06-17 15:04 | XMS_ITS | Encounter Summary ---
Author Organization [facility] Address [address] [place] [address] Care Team Providers Care Failure Analysis Technician Name Role Phone Kimo Sanchez MD Primary Care Provider [phone] Encounter Details Date Type Department Care Team (Late st Contact Info) Description 10/22/2003 Outpatient Historical [facility] FY06 Jose R Santos Jr., MD NO ADDRESS ON FILE Social History Tobacco Use Types Packs/Day Years Used Date Smoking Tobacco: Never Assessed Comments Unknown Sex and Gender Information Value Date Recorded Sex Assigned at Not on file 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
--- OUTSIDE RECORDS SUMMARY | 2025-06-17 15:04 | XMS_ITS | Encounter Summary ---
Author Organization [facility] Address [address] [place] [address] Care Team Providers Care Coloring Checker Name Role Phone Kimo Sanchez MD Primary Care Provider [phone] Encounter Details Date Type Department Care Team (Latest Contact Info) Description 12/18/2003 Outpatient Historical [facility] [place] [address] [place] [phone] Sergio Ruiz MD NO ADDRESS ON FILE PREOP EXAM OTHER SPECIFIED (Primary Dx) Social History Tobacco Use Types Packs/Day Years Used Date Smoking Tobacco: Never Assessed Comments Unknown Sex and Gender Information Value Date Recorded Sex Assigned at Not on file 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
--- OUTSIDE RECORDS SUMMARY | 2025-06-17 15:04 | XMS_ITS | Encounter Summary ---
Author Organization [facility] Address [address] [place] [address] Care Team Providers Care Nursing Assistant Name Role Phone Kimo Sanchez MD Primary Care Provider [phone] Encounter Details Date Type Department Care Team (Latest Contact Info) Description 10/22/2003 Outpatient Historical [facility] Medicine [address] [place] [address] Sergio Ruiz MD NO ADDRESS ON FILE JOINT PAIN-L/LEG (Primary Dx) Social History Tobacco Use Types Packs/Day Years Used Date Smoking Tobacco: Never Assessed Comments Unknown Sex and Gender Information Value Date Recorded Sex Assigned at Not on file 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
--- OUTSIDE RECORDS SUMMARY | 2025-06-17 15:05 | XMS_ITS | Data Portability ---
Author Organization OPAL Romero [facility], [facility] Address [address] [address] Care Team Providers Care Swimming Pool Serviceperson Name Role Phone KALI SANCHEZ Primary Care Provider Assessment No assessment recorded. Plan of Treatment Reminders Order Date Submit Date Provider Last Modified By Organization Details Last Modified Time Details Appointments ACUTE VISIT 2024 02:30P M WALK-IN Not available Not available Not available Lab BMP, serum or plasma 2024 025 [facility], [address] [facility], [address], [address], 02/10/2025 13:50:21 Referral orthopedi c surgeon referral [address], [address] [place] [address], [address], 03/19/2025 15:18:16 Procedures None recorded. Surgeries None recorded. Imaging XR, abdomen, complete 2024 025 [facility] ([facility]), [address] [place], [address], 02/11/2025 09:24:26 CT, abdomen + pelvis, w/ contrast 2024 025 [facility] (Scheduling Orders), [address] [place], [address], 02/17/2025 15:45:50 US, abdomen, complete - [address] 2024 025 [facility] ([facility] [address] [place], [address], 02/02/2025 10:29:12 NM, hepatobil iary scan [address] [facility], [address] [place] [address], [address], 12/18/2024 17:51:18 Medication Orders ondansetr on HCl 4 mg tablet 2024 025 [facility], [address] [place] [address], [address], 01/17/2025 16:44:32 itraconaz ole 100 mg capsule 2024 025 [facility], [address] [place] [address], [address], 03/07/2025 10:33:24 Patient TargetsNo targets recorded. Patient InstructionsNo instructions recorded. Reason for Referral Orthopedic Surgeon Referral for Pain of left knee joint Referring Physician: Kali Sanchez, Family Medicine, Encounter Date: 03/07/2025 Results Created Date Observation Date Name Description Value Unit Range Abnormal Flag Note LastModifiedBy Organization Detail LastModifiedTime 12/06/1912/05/2024 CBC WBC 7.5 x10 4.0-10 .5 Not Available [facility] [address] [facility] [address], [place], [address], 12/05/2024 13:49:12 12/06/1912/05/2024 CBC RBC 4.31 x10 3.50-5 .50 Not Available [facility] [address] [facility] [address], [place], [address], 12/05/2024 13:49:12 12/06/1912/05/2024 CBC HGB 12.9 g/dL 12.0-1 6.0 Not Available [facility] [address] [facility], [place], [address], 12/05/2024 13:49:12 12/06/19 25 12/05/2024 CBC HCT 38.1 % 37.0-4 7.0 Not Available [facility] [address] [facility], [place], [address], 12/05/2024 13:49:12 12/06/1912/05/2024 CBC MCV 88.4 fL 80.0-9 9.9 Not Available [facility] [address] [facility], [place], [address], 12/05/2024 13:49:12 12/06/1912/05/2024 CBC MCH 29.9 pg 27.0-3 2.0 Not Available [facility] [address] [facility], [place], [address], 12/05/2024 13:49:12 12/06/1912/05/2024 CBC MCHC 33.8 g/dL 32.0-3 6.0 Not Available [facility] [address] [facility], [place], [address], 12/05/2024 13:49:12 12/06/1912/05/2024 CBC RDW 13.3 % 11.5-1 4.5 Not Available [facility] [address] [facility], [place], [address], 12/05/2024 13:49:12 12/06/1912/05/2024 CBC plt 293.1 x10 140.0- 451.0 Not Available [facility] [address] [facility], [place], [address], 12/05/2024 13:49:12 12/06/19 25 12/05/2024 CBC lymphocytes % 36.6 % 20.0-5 0.0 Not Available [facility] [address] [facility] [address], [place], [address], 12/05/2024 13:49:12 12/06/19 25 12/05/2024 CBC granulcytes % 54.7 % 30.0-7 0.0 Not Available [facility] [address] [facility] [address], [place], [address], 12/05/2024 13:49:12 12/06/19 25 12/05/2024 CBC monocytes % 5.7 % 2.0-16 .0 Not Available [facility] [address] [address], [place], [address], 12/05/2024 13:49:12 12/06/19 25 12/05/2024 CBC granulcytes# 4.1 x10 Not Abi ilable [facility] [address] [address], [place], [address], 12/05/2024 13:49:12 12/06/19 25 12/05/2024 CBC lymphocytes # 2.7 x10 Not Available [facility] [address] [address], [place], [address], 12/05/2024 13:49:12 12/06/1912/05/2024 CBC monocytes # 0.4 x10 Not Avai lable [facility] [address] [address], [place], [address], 12/05/2024 13:49:12 12/06/19 25 12/05/2024 CMP (FEMA LE) glucose 108.0 mg/dL 60.0-9 9.0 high Not Available [facility] [address] [address], [place], [address], 12/05/2024 14:33:23 12/06/19 25 12/05/2024 CMP (FEMA LE) BUN (blood urea nitrogen) 10.0 mg/dL 10.0-2 6.0 Not Available [facility], [place], [address], 12/05/2024 14:33:23 12/06/19 25 12/05/2024 CMP (FEMA LE) creatinine (serum) 0.8 mg/dL 0.4-1. 5 Not Available [facility] [address] [facility], [place], [address], 12/05/2024 14:33:23 12/06/19 25 12/05/2024 CMP (FEMA LE) BUN/creatini ne ratio 12.50 ratio Not Available [facility] [address] [facility], [place], [address], 12/05/2024 14:33:23 12/06/19 25 12/05/2024 CMP (FEMA LE) eGFR calculated 81.4 Not Available [facility] [address] [facility], [place], [address], 12/05/2024 14:33:23 12/06/19 25 12/05/2024 CMP (FEMA LE) total protein 8.4 g/dL 6.0-8. 5 Not Available [facility] [address] [facility] [address], [place], [address], 12/05/2024 14:33:23 12/06/19 25 12/05/2024 CMP (FEMA LE) total bilirubin 0.4 mg/dL 0.2-1. 3 Not Available [facility] [address] [address], [place], [address], 12/05/2024 14:33:23 12/06/19 25 12/05/2024 CMP (FEMA LE) albumin 4.9 g/dL 3.5-5. 5 Not Available [facility] [address] [facility] [address], [place], [address], 12/05/2024 14:33:23 12/06/19 25 12/05/2024 CMP (FEMA LE) globulin 3.5 calc Not Available [facility] [address] [facility] [address], [place], [address], 12/05/2024 14:33:23 12/06/19 25 12/05/2024 CMP (FEMA LE) AST (SGOT) 25.0 U/L 0.0-46 .0 Not Available [facility] [address] [facility] [address], [place], [address], 12/05/2024 14:33:23 12/06/19 25 12/05/2024 CMP (FEMA LE) altv (SGPT) 20.0 U/L 13.0-6 9.0 normal Not Available [facility] [address] [facility] [address], [place], [address], 12/05/2024 14:33:23 12/06/19 25 12/05/2024 CMP (FEMA LE) A/G ratio 1.4 ratio Not Available [facility] [address] [facility] [address], [place], [address], 12/05/2024 14:33:23 12/06/19 25 12/05/2024 CMP (FEMA LE) ALP phos 52.0 U/L 30.0-1 40.0 normal Not Available [facility] [address] [facility] [address], [place], [address], 12/05/2024 14:33:23 12/06/19 25 12/05/2024 CMP (FEMA LE) calcium 9.8 mg/dL 8.4-10 .5 Not Available [facility] [address] [facility] [address], [place], [address], 12/05/2024 14:33:23 12/06/19 25 12/05/2024 CMP (FEMA LE) sodium 139.0 mmol/ L 136.0- 145.0 Not Available [facility] [address] [facility] [address], [place], [address], 12/05/2024 14:33:23 12/06/19 25 12/05/2024 CMP (FEMA LE) potassium 3.7 mmol/ L 3.5-5. 1 Not Available [facility] [address] [facility] [address], [place], [address], 12/05/2024 14:33:23 12/06/19 25 12/05/2024 CMP (FEMA LE) chloride 105.0 mmol/ L 98.0-1 10.0 normal Not Available [facility] [address] [facility] [address], [place], [address], 12/05/2024 14:33:23 12/06/19 25 12/05/2024 CMP (FEMA LE) C02 22.0 mmol/ L 22.0-3 1.0 Not Available [facility] [address] [facility] [address], [place], [address], 12/05/2024 14:33:23 12/06/19 25 12/05/2024 CMP (FEMA LE) anion gap 12.0 calc Not Available [facility] [address] [facility] [address], [place], [address], 12/05/2024 14:33:23 12/06/19 25 12/05/2024 CMP (FEMA LE) osmolality 286.7 calc Not Available [facility] [address] [facility] [address], [place], [address], 12/05/2024 14:33:23 12/06/19 25 12/05/2024 LIPID PROFI LE (FEMA LE) cholesterol 246.0 mg/dL 0.0-20 0.0 high Not Available [facility] [address] [facility] [address], [place], [address], 12/05/2024 14:33:26 12/06/19 25 12/05/2024 LIPID PROFI LE (FEMA LE) trig 152.0 mg/dL 0.0-15 0.0 high Not Available [facility] [address] [facility] [address], [place], [address], 12/05/2024 14:33:26 12/06/19 25 12/05/2024 LIPID PROFI LE (FEMA LE) HDL - direct 58.0 mg/dL >40.0 Not Available [facility] [address] [facility] [address], [place], [address], 12/05/2024 14:33:26 12/06/19 25 12/05/2024 LIPID PROFI LE (FEMA LE) VLDL - direct 30.4 mg/dL Not Available [facility] [address] [address], [place], [address], 12/05/2024 14:33:26 12/06/19 25 12/05/2024 LIPID PROFI LE (FEMA LE) LDL - direct 157.6 mg/dL 0.0-13 0.0 high Not Available [facility] [address] [address], [place], [address], 12/05/2024 14:33:26 12/06/19 25 12/05/2024 TSH TSH 1.26 uIU/m L 0.49-3 .82 Not Available [facility] [address] [address], [place], [address], 12/05/2024 16:28:46 12/06/19 25 12/06/2024 MAGNE SIUM magnesium 2.3 mg/dL 1.5-2. 5 normal Not Available [facility] [address], [address], 12/06/2024 09:03:24 12/06/19 25 12/10/2024 C-MARIANNA CTIVE PROTE IN C-reactive protein <3.0 mg/L <8.0 normal Not Available [facility] [address], [address], 12/10/2024 14:38:10 12/06/19 25 12/10/2024 FOLAT E, SERUM folate, serum >24.0 NG/mL normal Refer ence Range Low: <3.4 Borde rline : 3.4-5 .4 Shannon l: >5.4 Not Available [facility] [address], [address], 12/10/2024 14:38:11 12/06/19 25 12/10/2024 VITAM IN B12 vitamin B12 606 pg/mL 200-11 00 normal Not Available [facility] [address], [address], 12/10/2024 14:38:12 12/06/19 25 12/10/2024 VITAM IN B6, PLASM A vitamin B6, plasma 50.5 NG/mL 2.1-21 .7 high (Note ) Vitam in suppl ement ation withi n 24 hours prior to blood draw may affec t the accur acy of [facility]. This test was devel oped and its winnie tical perfo rmanc e sara cteri stics have been deter mined by [facility] kristina s. It has not been clear ed or appro suha by the FDA. This assay has been valid ated pursu ant to the CLIA regul ation s and is used for clini desiree purpo ses. MDF med fusio n [address] [facility] [address] [place] [address] [phone] Tona Wilkins MD, PhD Not Available [facility] [address] [place], [address], 12/10/2024 14:38:13 02/11/20 25 02/10/2025 BMP (FEMA LE) glucose 94.0 mg/dL 60.0-9 9.0 Not Available [facility] [address] [facility] [address], [place], [address], 02/10/2025 13:50:21 02/11/20 25 02/10/2025 BMP (FEMA LE) BUN (blood urea nitrogen) 9.0 mg/dL 10.0-2 6.0 low Not Available [facility] [address] [facility] [address], [place], [address], 02/10/2025 13:50:21 02/11/20 25 02/10/2025 BMP (FEMA LE) creatinine (serum) 0.8 mg/dL 0.4-1. 5 Not Available [facility] [address] [facility] [address], [place], [address], 02/10/2025 13:50:21 02/11/20 25 02/10/2025 BMP (FEMA LE) BUN/creatini ne ratio 11.25 ratio Not Available [facility] [address] [facility] [address], [place], [address], 02/10/2025 13:50:21 02/11/20 25 02/10/2025 BMP (FEMA LE) calcium 9.6 mg/dL 8.4-10 .5 Not Available [facility] [address] [facility] [address], [place], [address], 02/10/2025 13:50:21 02/11/20 25 02/10/2025 BMP (FEMA LE) sodium 138.0 mmol/ L 136.0- 145.0 Not Available [facility] [address] [facility], [place], [address], 02/10/2025 13:50:21 02/11/20 25 02/10/2025 BMP (FEMA LE) potassium 4.4 mmol/ L 3.5-5. 1 Not Available [facility] [address] [facility], [place], [address], 02/10/2025 13:50:21 02/11/20 25 02/10/2025 BMP (FEMA LE) chloride 106.0 mmol/ L 98.0-1 10.0 normal Not Available [facility] [address] [facility] [address], [place], [address], 02/10/2025 13:50:21 02/11/20 25 02/10/2025 BMP (FEMA LE) C02 24.0 mmol/ L 22.0-3 1.0 Not Available [facility] [address] [facility] [address], [place], [address], 02/10/2025 13:50:21 02/11/20 25 02/10/2025 BMP (FEMA LE) anion gap 8.0 calc Not Available [facility] [address] [facility] [address], [place], [address], 02/10/2025 13:50:21 02/16/20 25 02/15/2025 COLOG UARD cologuard result reportable NEGATI VE negati ve normal The Colog uard (TM) test was perfo rmed on this speci men. NEGAT JOHN TEST RESUL T. A negat john Colog uard resul t indic ates a low likel ihood that a color ectal cance r (CRC) or advan shannon adeno ma (theodore omato us polyp s with more advan shannon pre-m align ant featu res) is prese nt. The chanc e that a perso n with a negat john Colog uard test has a color ectal cance r is less than 1 in 1500 (nega tive predi ctive value >99.9 %) or has an advan shannon adeno ma is less than 5.3% (nega tive predi ctive value 94.7% ). These data are based on a prosp ectiv e cross -sect ional study of 10,00 0 indiv idual s at [place] [facility] risk for color ectal cance r who were scree mariana with both Colog uard and colon oscop y. (Vu Kang et al, N Engl J Med 2014; 370(1 4):12 86-12 97) The shannon l value (refe rence range ) for this assay is negat john. COLOG UARD RE-SC BEV FABIAN RECOM MENDA TION: Perio dic color ectal cance r scree nani is an impor tant part of preve ntive healt hcare for asymp tomat ic indiv idual s at [place] risk for color ectal cance r. Follo wing a negat john Colog uard resul t, the Ameri can Cance r Socie ty and U.S. Multi -Soci ety Task Force scree nani guide lines recom mend a Colog uard re-sc bev fabian inter les of 3 years . Refer ences : Ameri can Cance r Socie ty Guide line for Color ectal Cance r Scree nani: https ://ww w.can cer.o rg/ca ncer/ colon -rect al-ca ncer/ detec tion- diagn osis- stagi ng/ac s-rec ommen datio ns.ht ml.; Daren DK, Fadi thomas CR, Rosemary LeivaK, Color ectal Cance r Scree nani: Recom menda tions for Physi cians and Patie nts from the U.S. Multi -Soci ety Task Force on Color ectal Cance r Scree nani , Radha flores rolog y 2017; 112:1 016-1 030. TEST DESCR IPTIO N: Boronda site algor ithmi c winnie sis of stool DNA-b iomar kers with hemog lobin immun oassa y. Quant itati ve value s of indiv idual bioma rkers are not repor table and are not assoc iated with indiv idual bioma rker resul t refer ence range s. Colog uard is inten ded for color ectal cance r scree nani of adult s of eithe r sex, 45 years or older , who are at [facility] for color ectal cance r (CRC) . Colog uard has been appro suha for use by the U.S. FDA. The perfo rmanc e of Colog uard was estab lishe d in a cross secti onal study of [facility] adult s aged 50-84 . Colog uard perfo rmanc e in patie nts ages 45 to 49 years was estim ated by ang-g sussy winnie sis of near- age group s. Colon oscop ies perfo rmed for a posit john resul t may find as the most clini virgil signi fican t lesio n: color ectal cance r [4.0% ], advan shannon adeno ma (incl uding sessi le perla chelle polyp s great er than or equal to 1cm diame ter) [20%] or non- advan shannon adeno ma [31%] ; or no color ectal neopl camron [45%] . These estim ates are deriv ed from a prosp ectiv e cross -sect ional scree nani study of 10,00 0 indiv idual s at [facility] risk for color ectal cance r who were scree mariana with both Colog uard and colon oscop y. (Vu Khoury al, N Engl J Med 2014; 370(1 4):12 86-12 97.) Colog uard may produ ce a false negat john or false posit john resul t (no color ectal cance r or preca ncero us polyp prese nt at colon oscop y follo w up). A negat john Colog uard test resul t does not guara ntee the absen ce of CRC or advan shannon adeno ma (pre- cance r). The curre nt Colog uard scree nani inter les is every 3 years . (Amer ican Cance r Socie ty and U.S. Multi -Soci ety Task Force ). Colog uard perfo rmanc e data in a 10,00 0 patie nt pivot al study using colon oscop y as the refer ence metho d can be acces sed at the follo wing locat ion: www.e xactl abs.c om/re meek . Addit ional descr iptio n of the Colog uard test proce ss, warni ngs and preca ution s can be found at www.c alise kathryn.c om. Not Available [employer] [address], [place], [address], 02/22/2025 07:26:43 12/18/19 25 11/26/2024 eren r monit or No observ ation record ed. [email or web address] [facility] [address] [place], [address], 12/18/2024 15:38:34 01/02/20 25 12/31/2024 MRI, lumba r spine , w/o contr ast No observ ation record ed. [facility] [address] [place], [address], 01/08/2025 11:06:02 01/08/20 25 01/07/2025 NM, hepat obili dunia scan No observ ation record ed. [facility] [address] [place], [address], 01/13/2025 09:43:14 02/03/20 25 01/29/2025 US, abdom en, compl ete No observ ation record ed. [email or web address] [facility] [address] [place], [address], 02/03/2025 08:39:01 02/19/20 25 02/17/2025 CT, abdom en + pelvi s, w/ contr ast No observ ation record ed. [facility] [address] [place], [address], 02/18/2025 09:43:32 Result Notes None recorded. Problems Name Problem SNOMED Code Status Onset Date Resolution Date Notes Provider Name and Address Organization Details Recorded Time Anxiety state 426192638 Active 2022 TYLOR moon [facility], L.L.CAngie 5 12:53:12 Gastroesoph ageal reflux disease 815948719 Active 2022 JESÚS moon [facility], L.L.CAngie 5 11:09:28 Hyperlipide pedro 22290157 Active 2022 JESÚS moon [facility], QuynhL.CAngie 5 11:09:28 Lumbar radiculopat hy 865439660 Active 2023 JESÚS moon [facility].L.CAngie 5 11:09:28 Greater trochanteri c pain syndrome 8379508 Active 2023 JESÚS moon [facility] 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 5 12:53:48 Acute gastritis 00075986 Active 2024 ALLAN moon [facility], L.L.CAngie 5 15:20:05 Epigastric pain 58909478 Active 2024 ALLAN moon [facility] L.L.CAngie 5 15:20:05 Severe obesity 4145491627850 4 Active 2024 ALLAN moon [facility] L.L.CAngie 15:20:09 Abdominal pain 09610954 [facility] 15:20:05 Poorly functioning gallbladder 050095156 Active 2024 Kali Sanchez MD [address] [place] [address], [phone], [facility] [place] 10:52:24 Irritable bowel syndrome characteriz ed by constipatio n 659973246 Active 2024 Kali Sanchez MD [address] [place] [address], [phone], [facility] [place] 10:52:53 Pain of left knee joint 2039159309648 07 Active 2024 Kali Sanchez MD [address] [place] [address], [phone], [facility] [place] 10:59:59 Problem Notes None recorded. Procedures Surgical History Date Name Laterality Status Provider Name and Address Organization Details Recorded Time colonoscopy completed DAQUAN MCELROY [address] [place] [address], [phone], [facility] [place] 02/24/2025 12:22:46 MRI of lumbar spine completed TYLOR BLAND [facility], Mary BethCAngie 01/01/2025 19:07:55 reduction mammoplasty completed Sandra Be [facility], [place] 03/07/2025 10:53:25 repair of shoulder completed Sandra Be [facility], [place] 03/07/2025 10:55:21 procedure on knee completed Sandra Be [facility], [place] 03/07/2025 10:56:32 repair of ankle completed Sandra Ramsay [facility], [place] 03/07/2025 10:57:01 nasal septoplasty completed Sandra Be [facility], [place] 03/07/2025 10:57:37 excision of cyst [facility]/07/2025 10:58:06 Imaging Results None recorded. Procedure Notes None recorded. Medical Equipment None Reported. Allergies Allergen ID Allergen Name Allergen Category Reaction Reaction Severity Criticality Documentation Date Start Date Code Code System Note Provider Name and Address Organization Details Recorded Time 3808 tramadol medicatio n Not available Not available Not available 01/05/2023 13719 RxNorm CORRIE moon [facility], [place] 3 08:58:44 Medications Name Sig Start Date Stop Date Status Note LastModified by Organization Details LastModified Time Tirzepati de/Niacin amide Continuin g Use as directed 2024 active Not Available Not Available Not Avai lable amoxicill in 500 mg capsule TAKE ONE CAPSULE BY MOUTH EVERY 8 HOURS UNTIL ALL are taken 05/23 completed Not Available Not Available Not Available terconazo le 0.4 % vaginal cream insert ONE applicat or vaginall y daily at bedtime FOR SEVEN DAYS 11/30 completed Not Available Not Available Not Available prednison e 10 mg tablet take 2 tablets BY MOUTH DAILY FOR 14 DAYS 07/19 completed Not Available Not Available Not Available atorvasta tin 20 mg tablet TAKE ONE TABLET BY MOUTH EVERY DAY 08/11 completed Not Available Not Available Not Available ketoconaz ole 2 % shampoo shampoo SCALP twice WEEKLY AND allow TO sit FOR TWO MINUTES BEFORE rinsing 05/23 completed Not Available Not Available Not Available clindamyc in HCl 300 mg capsule TAKE ONE CAPSULE BY MOUTH THREE TIMES DAILY FOR 10 DAYS 05/23 completed Not Available Not Available Not Available azithromy wilmer 250 mg tablet TAKE 2 TABLETS BY MOUTH ON DAY 1, THEN TAKE 1 TABLET DAILY ON DAYS 2-5 06/07 completed Not Available Not Available Not Available tizanidin e 4 mg tablet TAKE ONE TABLET BY MOUTH THREE TIMES DAILY NEEDED FOR neck OR FOR BACK spasm 05/23 completed Not Available Not Available Not Available fluconazo le 150 mg tablet TAKE ONE TABLET BY MOUTH FOR ONE DAY 05/23 completed Not Available Not Available Not Available valacyclo vir 1 gram tablet TAKE 2 TABLETS BY MOUTH EVERY TWELVE HOURS FOR ONE DAY 12/10 completed Not Available Not Available Not Available fluconazo le 200 mg tablet TAKE ONE TABLET BY MOUTH ONCE WEEKLY 07/19 completed Not Available Not Available Not Available meloxicam 15 mg tablet TAKE ONE TABLET BY MOUTH EVERY DAY NEEDED muscle OR FOR BACK pain 05/23 completed Not Available Not Available Not Available phenazopy ridine 200 mg tablet TAKE ONE TABLET BY MOUTH EVERY 8 HOURS FOR SIX doses 12/28 completed Not Available Not Available Not Available ondansetr on HCl 4 mg tablet TAKE ONE TABLET BY MOUTH FOUR TIMES DAILY NEEDED active Not Available Not Available No t Available prednison e 20 mg tablet TAKE TWO TABLETS BY MOUTH ON DAY 1-3 THEN TAKE ONE TABLET BY MOUTH ON DAYS 4-6 AND THEN TAKE ONE-HALF TABLET ON DAYS 7-8 05/23 completed Not Available Not Available Not Available prednison e 5 mg tablet TAKE 1/2 TABLET BY MOUTH DAILY AT breakfas t. double UP ON sick DAYS active Not Available Not Available No t Available tramadol 50 mg tablet TAKE 1-2 TABLETS BY MOUTH FOUR TIMES DAILY NEEDED FOR SEVERE pain 11/30 completed Not Available Not Available Not Available triamcino lone acetonide 0.1 % topical cream 11/30 completed Not Available Not Available Not Available Sudogest 30 mg tablet TAKE TWO TABLETS BY MOUTH THREE TIMES DAILY NEEDED 11/30 completed Not Available Not Available Not Available betametha sone acetate and sodium phos 6 mg/mL suspensio n for injection Take 1 mL every day by injectio n route for 1 day. 11/12 completed Not Available Not Available Not Available oxycodone -acetamin ophen 5 mg-325 mg tablet TAKE ONE TABLET BY MOUTH EVERY 6 HOURS NEEDED FOR PAIN 05/23 completed Not Available Not Available Not Available amoxicill in 875 mg tablet Take 1 tablet every 12 hours by oral route for 7 days. 11/12 completed Not Available Not Available Not Available alprazola m 0.25 mg tablet Take 1 tablet 3 times a day by oral route. 2024 active Not Available Not Available Not Avai lable trazodone 100 mg tablet TAKE ONE TABLET BY MOUTH EVERY DAY EVERY EVENING 12/05 completed Not Available Not Available Not Available cephalexi n 500 mg capsule TAKE ONE CAPSULE BY MOUTH EVERY 6 HOURS FOR 7 DAYS 12/28 completed Not Available Not Available Not Available pantopraz ole 40 mg tablet,de layed release TAKE ONE TABLET BY MOUTH DAILY NEEDED active Not Available Not Available No t Available oseltamiv ir 75 mg capsule TAKE ONE CAPSULE BY MOUTH DAILY 11/30 completed Not Available Not Available Not Available triamcino lone acetonide 0.1 % topical ointment apply enough TO cover topicall y TO THE affected AREAS TWICE DAILY FOR TWO WEEKS needed 05/23 completed Not Available Not Available Not Available clotrimaz ole-betam ethasone 1 %-0.05 % topical cream apply TO affected AREA TWICE DAILY 12/28 completed Not Available Not Available Not Available albuterol sulfate HFA 90 mcg/actua tion aerosol inhaler inhale TWO puffs every FOUR hours NEEDED FOR SEVEN DAYS 12/05 completed Not Available Not Available Not Available Vitamin D2 1,250 mcg (50,000 unit) capsule TAKE ONE CAPSULE BY MOUTH EVERY OTHER WEEK active Not Available Not Available No t Available ketorolac 60 mg/2 mL intramusc ular solution Inject 2 mL by intramus cular route for 1 day. 05/23 completed Given by Nakia thomas well. Not Available Not Available Not Available hydrocort isone 2.5 % topical ointment apply enough TO cover affected AREAS topicall y EVERY TWELVE HOURS 05/23 completed Not Available Not Available Not Available ketoconaz ole 2 % topical cream apply TWICE DAILY TO ears AND face 05/23 completed Not Available Not Available Not Available cefdinir 300 mg capsule TAKE ONE CAPSULE BY MOUTH TWICE DAILY 11/30 completed Not Available Not Available Not Available itraconaz ole 100 mg capsule take 2 capsules BY MOUTH EVERY DAY 03/07 completed Not Available Not Available Not Available phentermi ne 37.5 mg capsule TAKE ONE TABLET BY MOUTH EVERY DAY 07/19 completed Not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
--- OUTSIDE RECORDS SUMMARY | 2025-06-17 15:05 | XMS_ITS | Encounter Summary ---
Author Organization [facility] Address [address] [place] [address] Care Team Providers Care Drill Press Operator Numerical Control Name Role Phone Kimo Sanchez MD Primary Care Provider [phone] Encounter Details Date Type Department Care Team (Latest Contact Info) Description 04/26/2004 Outpatient Historical [facility] 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
--- OUTSIDE RECORDS SUMMARY | 2025-06-17 15:05 | XMS_ITS | Clinical Summary ---
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 Health Maintenance Insurance [employer] Commercial Advance Directives For more information, please contact: [phone] * Full Code (Latest Code Status on File) Date Activated Date Inactivated Comments 03/21/2025 11:29 AM 03/21/2025 4:56 PM * Full Code Date Activated Date Inactivated Comments 02/25/2025 1:59 PM 02/25/2025 5:27 PM Care Teams Protective Services Social Worker Relationship Specialty Start Date End Date Kimo Sanchez MD [address] [address] PCP - General 07/22/04
--- OUTSIDE RECORDS SUMMARY | 2025-06-17 15:05 | XMS_ITS | Encounter Summary ---
Author Organization [facility] Address [address] [place] [address] Care Team Providers Care Hot Molder Name Role Phone Kimo Sanchez MD Primary Care Provider [phone] Encounter Details Date Type Department Care Team (Latest Contact Info) Description 04/13/[address] 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
--- OUTSIDE RECORDS SUMMARY | 2025-06-17 15:05 | XMS_ITS | Encounter Summary ---
Author Organization [facility] Address [address] [place] [address] Care Team Providers Care Pipe Organ Technician Name Role Phone Kimo Sanchez MD Primary Care Provider [phone] Encounter Details Date Type Department Care Team (Latest Contact Info) Description 04/02/2007 Outpatient Historical [facility] Physical Therapy [address] [place] [address] [place] [address] Non-Staff, Physician NO ADDRESS ON FILE Other Physical Therapy (Primary Dx) Social History Tobacco Use Types Packs/Day Years Used Date Smoking Tobacco: Never Assessed Comments Unknown Sex and Gender Information Value Date Recorded Sex Assigned at Not on file 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
--- OUTSIDE RECORDS SUMMARY | 2025-06-17 15:05 | XMS_ITS | Encounter Summary ---
Author Organization [facility] Address [address] [place] [address] Care Team Providers Care Dye Colorist Formulator Name Role Phone Kimo Sanchez MD Primary Care Provider [phone] Encounter Details Date Type Department Care Team (Late st Contact Info) Description 06/03/2007 Outpatient Historical [facility] Physical Therapy [address] [place] [address] [place] [phone] Non-Staff, Physician NO ADDRESS ON FILE Social History Tobacco Use Types Packs/Day Years Used Date Smoking Tobacco: Never Assessed Comments Unknown Sex and Gender Information Value Date Recorded Sex Assigned at Not on file Legal Sex Female 3:35 AM EYELET RIVETER Gender Identity Not on file Sexual Orientation Not on file documented as of this encounter Plan of Treatment Not on file documented as of this encounter Visit Diagnoses Not on filedocumented in this encounter Care Teams Dye Colorist Formulator Relationship Specialty Start Date End Date Kimo Sanchez MD [address] [phone] PCP - General 07/22/04 documented as of this encounter
--- OUTSIDE RECORDS SUMMARY | 2025-06-17 15:05 | XMS_ITS | Encounter Summary ---
Author Organization [facility] Address [address] [place] [address] Care Team Providers Care Soap Inspector Name Role Phone Kimo Sanchez MD Primary Care Provider [phone] Encounter Details Date Type Department Care Team (Latest Contact Info) Description 11/27/2006 Outpatient Historical [facility] Ear, Nose and Throat [address] [place] [address] [place] [address] Shabbir Delarosa MD [address] 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
--- OUTSIDE RECORDS SUMMARY | 2025-06-17 15:05 | XMS_ITS | Encounter Summary ---
Author Organization [facility] Address [address] [place] [address] Care Team Providers Care Aluminizer Name Role Phone Kimo Sanchez MD Primary Care Provider [phone] Reason for Referral * Radiology Services (Routine) - Closed Specialty Diagnoses / Procedures Referred By Doron crockett Referred To Contact Radiology Diagnoses Lump of breast, right Procedures MAMMO BREAST US BILAT LTD MAMMO BREAST US RIGHT LTD Lizy Elizalde MD Phone: tel: fax: [facility] [address] [facility] [address] [place] [address] Phone: tel: fax: Referral ID Status Reason Start Date Expiration Date Visits Requested Visits Authorized [id number] Closed Performing Department To Schedule (SGF) 05/17/2018 06/17/2019 1 1 Encounter Details Date Type Department Care Team (Late st Contact Info) Description 05/17/2018 Ancillary Orders [facility] Pre-Registration [place] CALL TO MAKE APPOINTMENT ONLY [address] [place] [address] Lizy Elizalde MD [address] [facility] [address] [place] [address] Lump of breast, right Social History Tobacco Use Types Packs/Day Years Used Date Smoking Tobacco: Never Smokeless Tobacco: Never Alcohol Use Standard Drinks/Week Comments Yes 0 (1 standard drink = 0.6 oz pur e alcohol) Comments No Sex and Gender Information Value Date Recorded Sex Assigned at Not on file 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 No abnormality visualized at the site of the patient's palpable lumps bilaterally. Clinical correlation/management is recommended as well as annual screening mammography. BI-RADS: 1 Recommendation: Annual screening mammography Recommendation Laterality: Bilateral [id number] Narrative 05/28/2018 7:22 AM CDT EXAM: MAMMO DIAG BILAT 3D PEGGY W OR WO CAD, MAMMO BREAST Qalendra, 05/25/2018 1:32 PM CLINICAL INDICATIONS: 42-year-old woman presents with a palpable lump in the 6:00 axis of the left breast, and a palpable lump within the 3:00 axis of the right breast. She also reported a lump within the 2:00 axis of the left breast when she presented for ultrasound evaluation. COMPARISON: 07/18/2017, 04/01/2016, 07/19/2011, 06/03/2008 TECHNIQUE: 3-D MLO and CC digital tomosynthesis images were acquired. Synthesized 2-D images (C-view) were generated. This digital mammogram was also analyzed by the Computer Aided Detection System (CAD). FINDINGS: There are scattered areas of fibroglandular density. A radiopaque triangular marker overlies the 2-3:00 axis of the right breast at the site of the patient's palpable lump. There is no underlying mammographic abnormality. A radiopaque triangular marker overlies the 6:00 axis of the left breast at the site of the patient's palpable lump. There is no underlying mammographic abnormality. There are no new suspicious masses, calcifications, or architectural distortions. Ultrasound evaluation to follow. TECHNIQUE: Multiple real-time garner-scale images of the bilateral breasts are performed. Color Doppler was used to assess vascular flow. FINDINGS: There is no mass lesion, architectural distortion or abnormal vascularity seen. us Lizy Elizalde MD MAMMO ORDERABLES Final Res ult documented in this encounter Visit Diagnoses Diagnosis Lump of breast, right Lump or mass in breast Lump of breast, right Lump or mass in breast documented in this encounter Care Teams Aluminizer Relationship Specialty Start Date End Date Kimo Sanchez MD [address] [place] [address] PCP - General 07/22/04 documented as of this encounter
--- OUTSIDE RECORDS SUMMARY | 2025-06-17 15:05 | XMS_ITS | Encounter Summary ---
Author Organization [facility] Address [address] [place] [address] Care Team Providers Care Tower Helper Name Role Phone Kimo Sanchez MD Primary Care Provider [phone] Reason for Referral * Outpatient Services (Routine) - Closed Specialty Diagnoses / Procedures Referred By Doron crockett Referred To Contact Diagnoses Cervical radiculitis Procedures XR FLUORO NEEDLE GUIDANCE SPINE Laura Kim DO [address] [place] [address] Phone: tel: fax: Referral ID Status Reason Start Date Expiration Date Visits Re quested Visits Authorized [id number] Closed 04/17/2018 05/18/2019 1 1 Encounter Details Date Type Department Care Team (Late st Contact Info) Description 04/17/2018 Ancillary Orders [facility] Pain Management Procedures [place] [address] [place] [address] Laura Kim DO [address] [address] Cervical radiculitis Social History Tobacco Use Types Packs/Day Years Used Date Smoking Tobacco: Never Smokeless Tobacco: Never Alcohol Use Standard Drinks/Week Comments Yes 0 (1 standard drink = 0.6 oz pur e alcohol) Comments No Sex and Gender Information Value Date Recorded Sex Assigned at Not on file 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 Exam was auto-finalized. us Laura Kim DO DIAGNOSTIC IMAGING ORDERABLE S Final Result documented in this encounter Visit Diagnoses Diagnosis Cervical radiculitis Brachial neuritis or radiculitis nos Cervical radiculitis Brachial neuritis or radiculitis nos documented in this encounter Care Teams Tower Helper Relationship Specialty Start Date End Date Kimo Sanchez MD [address] [address] PCP - General 07/22/04 documented as of this encounter
--- OUTSIDE RECORDS SUMMARY | 2025-06-17 15:05 | XMS_ITS | Encounter Summary ---
Author Organization [facility] Address [address] [place] [address] Care Team Providers Care Telegraph Operator Name Role Phone Kimo Sanchez MD Primary Care Provider [phone] Encounter Details Date Type Department Care Team (Latest Contact Info) Description 11/02/2006 Outpatient Historical [facility] Ear, Nose and Throat [address] [place] 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
--- OUTSIDE RECORDS SUMMARY | 2025-06-17 15:05 | XMS_ITS | Encounter Summary ---
Author Organization [facility] Address [address] [place] [address] Care Team Providers Care Personnel Security Assistant Name Role Phone Kimo Sanchez MD Primary Care Provider [phone] Encounter Details Date Type Department Care Team (Latest Contact Info) Description 10/25/2006 Outpatient Historical [facility] Ear, Nose and Throat [address] [place] [address] [place] [address] Shabbir Delarosa MD [address] [facility] [address] [place] [address] Deviated Nasal Septum (Primary Dx); Hypertrph Nasal Turbinat Social History Tobacco Use Types Packs/Day Years Used Date Smoking Tobacco: Never Assessed Comments Unknown Sex and Gender Information Value Date Recorded Sex Assigned at Not on file Legal Sex Female 3:35 AM MEDICAL PROGRAM SPECIALIST Gender Identity Not on file Sexual Orientation Not on file documented as of this encounter Plan of Treatment Not on file documented as of this encounter Visit Diagnoses Diagnosis Deviated nasal septum- Primary Hypertrph nasal turbinat Hypertrophy of nasal turbinates documented in this encounter Care Teams Personnel Security Assistant Relationship Specialty Start Date End Date Kimo Sanchez MD [address] [facility] [address] [place], [place] [address] PCP - General 07/22/04 documented as of this encounter
--- OUTSIDE RECORDS SUMMARY | 2025-06-17 15:05 | XMS_ITS | Encounter Summary ---
Author Organization [facility] Address [address] [place] [address] Care Team Providers Care Attenuator Name Role Phone Kimo Sanchez MD Primary Care Provider [phone] Encounter Details Date Type Department Care Team (Latest Contact Info) Description 03/03/2004 Outpatient Historical [facility] Medicine [address] [place] [address] Sergio Ruiz MD NO ADDRESS ON FILE OLD DISRUPT ANT CRUCIATE (Primary Dx) Social History Tobacco Use Types Packs/Day Years Used Date Smoking Tobacco: Never Assessed Comments Unknown Sex and Gender Information Value Date Recorded Sex Assigned at Not on file 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
--- OUTSIDE RECORDS SUMMARY | 2025-06-17 15:05 | XMS_ITS | Encounter Summary ---
Author Organization [facility] Address [address] [place] [address] Care Team Providers Care Valet Name Role Phone Kimo Sanchez MD Primary Care Provider [phone] Encounter Details Date Type Department Care Team (Latest Contact Info) Description 07/22/2004 Outpatient Historical [facility] [address] [place] [address] [facility] [address] [place] [address] Sergio Ruiz MD NO ADDRESS ON FILE LOOSE BODY IN KNEE (Primary Dx) Social History Tobacco Use Types Packs/Day Years Used Date Smoking Tobacco: Never Assessed Comments Unknown Sex and Gender Information Value Date Recorded Sex Assigned at Not on file Legal Sex Female 3:35 AM MEDIA TRAFFIC MANAGER Gender Identity Not on file Sexual Orientation Not on file documented as of this encounter Plan of Treatment Not on file documented as of this encounter Visit Diagnoses Diagnosis Loose body in knee- Primary documented in this encounter Care Teams Valet Relationship Specialty Start Date End Date Kimo Sanchez MD [address] [address] PCP - General 07/22/04 documented as of this encounter
--- OUTSIDE RECORDS SUMMARY | 2025-06-17 15:05 | XMS_ITS | Encounter Summary ---
Author Organization [facility] Address [address] [place] [address] Care Team Providers Care Communication Analyst Name Role Phone Kimo Sanchez MD Primary Care Provider [phone] Encounter Details Date Type Department Care Team (Late st Contact Info) Description 05/03/2007 Outpatient Historical [facility] Physical Therapy [address] [place] [address] [place] [address] Non-Staff, Physician NO ADDRESS ON FILE Social History Tobacco Use Types Packs/Day Years Used Date Smoking Tobacco: Never Assessed Comments Unknown Sex and Gender Information Value Date Recorded Sex Assigned at Not on file Legal Sex 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
--- OUTSIDE RECORDS SUMMARY | 2025-06-17 15:05 | XMS_ITS | Encounter Summary ---
Author Organization [facility] Address [address] [place] [address] Care Team Providers Care Screen Maker Name Role Phone Kimo Sanchez MD Primary Care Provider [phone] Encounter Details Date Type Department Care Team (Latest Contact Info) Description 05/05/2004 Outpatient Historical [facility] [address] [place] [address] [place] [address] Sergio Ruiz MD NO ADDRESS ON FILE LOC PRIM OSTEOART-L/LEG (Primary Dx) Social History Tobacco Use Types Packs/Day Years Used Date Smoking Tobacco: Never Assessed Comments Unknown Sex and Gender Information Value Date Recorded Sex Assigned at Not on file Legal Sex Female 3:35 AM ANESTHESIOLOGIST/PHYSICIAN Gender Identity Not on file Sexual Orientation Not on file documented as of this encounter Plan of Treatment Not on file documented as of this encounter Visit Diagnoses Diagnosis Primary localized osteoarthrosis, lower leg- Primary documented in this encounter Care Teams Screen Maker Relationship Specialty Start Date End Date Kimo Sanchez MD [address] [address] PCP - General 07/22/04 documented as of this encounter
--- OUTSIDE RECORDS SUMMARY | 2025-06-17 15:05 | XMS_ITS | Encounter Summary ---
Author Organization [facility] Address [address] [place] [address] Care Team Providers Care Physician Underwriter Name Role Phone Kimo Sanchez MD Primary Care Provider [phone] Encounter Details Date Type Department Care Team (Latest Contact Info) Description 06/09/2004 Outpatient Historical [facility] Medicine [address] [place] [address] Sergio Ruiz MD NO ADDRESS ON FILE JOINT PAIN-L/LEG (Primary Dx) Social History Tobacco Use Types Packs/Day Years Used Date Smoking Tobacco: Never Assessed Comments Unknown Sex and Gender Information Value Date Recorded Sex Assigned at Not on file Legal Sex Female 3:35 AM EMERGENCY MEDICINE NURSE PRACTITIONER Gender Identity Not on file Sexual Orientation Not on file documented as of this encounter Plan of Treatment Not on file documented as of this encounter Visit Diagnoses Diagnosis Pain in joint, lower leg- Primary documented in this encounter Care Teams Physician Underwriter Relationship Specialty Start Date End Date Kimo Sanchez MD [address] [address] PCP - General 07/22/04 documented as of this encounter
--- OUTSIDE RECORDS SUMMARY | 2025-06-17 15:05 | XMS_ITS | Encounter Summary ---
Author Organization [facility] Address [address] [place] [address] Care Team Providers Care Painter And Decorator Name Role Phone Kimo Sanchez MD Primary Care Provider [phone] Encounter Details Date Type Department Care Team (Latest Contact Info) Description 02/27/2007 Outpatient Historical [facility] Ear, Nose and Throat [address] [place] 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
--- OUTSIDE RECORDS SUMMARY | 2025-06-17 15:05 | XMS_ITS | Encounter Summary ---
Author Organization [facility] Address [address] [place] [address] Care Team Providers Care Traveling Representative Name Role Phone Kimo Sanchez MD Primary Care Provider [phone] Reason for Referral * Outpatient Services (Routine) - Closed Specialty Diagnoses / Procedures Referred By Doron crockett Referred To Contact Radiology Diagnoses Encounter for screening mammogram for breast cancer Procedures MAMMO SCREEN BILAT W OR WO CAD Lizy Elizalde MD Phone: tel: fax: [facility] [address] [facility] [address] [place] [address] Phone: tel: fax: Referral ID Status Reason Start Date Expiration Date Visits Re quested Visits Authorized [id number] Closed 05/24/2017 06/24/2018 1 1 Encounter Details Date Type Department Care Team (Late st Contact Info) Description 05/24/2017 Ancillary Orders [facility] Pre-Registration [place] CALL TO MAKE APPOINTMENT ONLY [address] [place] [address] Lizy Elizalde MD [address] [facility] [address] [place] [address] Encounter for screening mammogram for breast cancer Social History Tobacco Use Types Packs/Day Years Used Date Smoking Tobacco: Never Smokeless Tobacco: Never Alcohol Use Standard Drinks/Week Comments Yes 0 (1 standard drink = 0.6 oz pur e alcohol) Comments No Sex and Gender Information Value Date Recorded Sex Assigned at Not on file Legal Sex Female 3:35 AM PRINT SUPPORT SPECIALIST Gender Identity Not on file Sexual Orientation Not on file Occupation Industry Job Start Date Job End Date Not on file Not on file Not on file Not on file documented as of this encounter Plan of Treatment Not on file documented as of this encounter Results * MAMMO SCREEN BILAT W OR WO CAD (07/18/2017 11:15 AM PRINT SUPPORT SPECIALIST) Anatomical Region Laterality Modality Breast Bilateral Mammography Narrative 07/19/2017 11:59 AM PRINT SUPPORT SPECIALIST Bilateral Mammogram Reason for Exam: Screening Comparison: Compared to: 04/01/2016 MAMMO DIGITAL SCREEN BILAT Findings: Bilateral CC and MLO views were obtained. This examination was reviewed with the aid of a computer-aided detection system(CAD). Breast Composition: There are scattered areas of fibroglandular density. There are no suspicious masses, areas of architectural distortions, or microcalcifications to suggest malignancy. No significant new findings since the prior mammogram(s). Lizy Elizalde MD MAMMO ORDERABLES Final Res ult documented in this encounter Visit Diagnoses Diagnosis Encounter for screening mammogram for breast cancer Encounter for screening mammogram for breast cancer documented in this encounter Care Teams Traveling Representative Relationship Specialty Start Date End Date Kimo Sanchez MD [address] [address] PCP - General 07/22/04 documented as of this encounter
--- OUTSIDE RECORDS SUMMARY | 2025-06-17 15:05 | XMS_ITS | Continuity of Care Document ---
Author Organization [facility] Ivelisse, [place], [facility] ([facility]) Address [address] [place] [address] Care Team Providers Care Tank Storage Supervisor Name Role Phone KALI SANCHEZ Primary Care Provider [phone] Assessment No assessment recorded. Plan of Treatment Reminders Order Date Submit Date Provider Last Modified By Organization Details Last Modified Time Details Appointments ACUTE VISIT 025 02:30PM WALK-IN Not available Not available Not available Lab None recorde d. Referral None recorde d. Procedures None recorde d. Surgeries None recorde d. Imaging None recorde d. Medication Orders None recorde d. Patient TargetsNo targets recorded. Patient InstructionsNo instructions recorded. Reason for Referral None Reported. Problems Name Problem SNOMED Code Status Onset Date Resolution Date Notes Provider Name and Address Organization Details Recorded Time Anxiety state 790356986 Active 2022 [facility] 12:53:12 Gastroesoph ageal reflux disease 869847178 Active 2022 JESÚS moon [facility] LAngieLMarci 5 11:09:28 Hyperlipide pedro 38076508 Active 2022 [facility] 11:09:28 Lumbar radiculopat hy 958247849 Active 2023 [facility] 11:09:28 Greater trochanteri c pain syndrome 8551522 Active 2023 JESÚS TRUJILLO null, [facility] 5 11:09:28 Supraventri cular tachycardia 2300911 Active 2024 TYLOR BALDO null, [facility] 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 5 12:53:48 Acute gastritis 78962686 Active 2024 ALLAN ARITA null, [facility] 5 15:20:05 Epigastric pain 81590860 Active 2024 ALLAN ARITA null, [facility] 5 15:20:05 Severe obesity 8479175436752 4 Active 2024 ALLAN ARITA null, [facility] 5 15:20:09 Abdominal pain 05548996 Active 2024 ALLAN ARITA null, [facility] 5 15:20:05 Poorly functioning gallbladder 081987174 Active 2024 Kali Sanchez MD [address] [place] [address], [address], [facility] 5 10:52:24 Irritable bowel syndrome characteriz ed by constipatio n 723216616 Active 2024 Kali Sanchez MD [address] [place] [address], [address], [facility] 5 10:52:53 Pain of left knee joint 1416569289607 07 Active 2024 Kali Sanchez MD [address] [place] [address], [facility], [place] 5 10:59:59 Problem Notes None recorded. Procedures Surgical History Date Name Laterality Status Provider Name and Address Organization Details Recorded Time 5 colonoscopy completed ANABELLE RESTREPO, MANAGER OF CLINICAL [address] [place], [address], [facility], [place] 02/24/2025 12:22:46 5 MRI of lumbar spine completed TYLOR BLAND [facility], [place] 01/01/2025 19:07:55 reduction mammoplasty completed [facility], [place] 03/07/2025 10:53:25 repair of shoulder completed [facility], Mary BethCAngie 03/07/2025 10:55:21 procedure on knee completed [facility], QuynhLAngieCAngie 03/07/2025 10:56:32 repair of ankle completed Sandramatthew Be [facility], LAngieLAngieCAngie 03/07/2025 10:57:01 nasal septoplasty completed [facility], LAngieLAngieCAngie 03/07/2025 10:57:37 excision of cyst completed [facility], LAngieLAngieCAngie 03/07/2025 10:58:06 Imaging Results None recorded. Procedure Notes None recorded. Medical Equipment None Reported. Allergies Allergen ID Allergen Name Allergen Category Reaction Reaction Severity Criticality Documentation Date Start Date Code Code System Note Provider Name and Address Organization Details Recorded Time 3808 tramadol medicatio n Not available Not available Not available 01/05/2023 17732 RxNorm CORRIE moon [facility], QuynhLAngieCAngie 3 08:58:44 Medications Name Sig Start Date [...] 1 day. 05/23 completed Given by Nakia angel. Not Available Not Available Not Available hydrocort [...] and Address Organization Details Last Updated DateTime 175.26 cm 32.6 kg/m2 450318. 91 g 99 % 99 % 135 /min 98.2 [degF] 140/92 mm[Hg] Tylor Almendarez [facility] 15:43:26 Social History Question Answer Notes LastModified by Organizat ion Details LastModified Time Tobacco Smoking Status Never Smoker ALLAN moon [facility] 11/30/2022 15:44:41 Are You Currently Sexually Active With Anyone Who Has Traveled (within The Last 12 Weeks) To A Zika-affected Area? No Information not available 10/28/2022 Are You Blind Or Do You Have Difficulty Seeing? No [email or web address] Information n ot available 10/28/2022 In The 14 Days Before Symptom Onset, Have You Had Close Contact With A Laboratory-confirm ed COVID-19 While That Case Was Ill? No [email or web address] Information n ot available 10/28/2022 In The 14 Days Before Symptom Onset, Have You Had Close Contact With A Person Who Is Under Investigation For COVID-19 While That Person Was Ill? No [email or web address] Information not available 10/28/2022 Have You Been To An Area Known To Be High Risk For COVID-19? No [email or web address] Information not available 10/28/2022 Are You Deaf Or Do You Have Serious Difficulty Hearing? No Information not available 10/28/2022 Have You Processed Blood Or Body Fluids From An Ebola Virus Disease Patient Without Appropriate PPE? No [email or web address] Information not available 10/28/2022 Do You Reside In Or Have You Traveled To An Area Where Ebola Virus Transmission Is Active? No [email or web address] Information not available 10/28/2022 Have You Recently Or Are You Planning To Travel To An Area With Zika Virus? No [email or web address] Information not available 10/28/2022 Have You Been Scratched Or Bitten By An Animal Or Have You Prepared Or Eaten Meat Or Used Products From An Animal Infected With Monkeypox? No [email or web address] Information not available 10/28/2022 Have You Had Direct Contact, Or Contact During Intimacy, With Monkeypox Rash, Scabs, Or Body Fluids From A Person With Monkeypox? No [email or web address] Information not available 10/28/2022 Have You Touched Any Objects (including Fetish Gear Or Sex Toys), Fabrics (clothing, Bedding, Or Towels), And Surfaces That Have Been Used By Someone With Monkeypox? No [email or web address] Information not available 10/28/2022 Have You Had Contact With Respiratory Secretions From A Person With Monkeypox? No [email or web address] Information not available 10/28/2022 What Was The Date Of Your Most Recent Tobacco Screening? 06/17/2025 [email or web address] Information not available 06/17/2025 How Many Children Do You Have? 1 [email or web address] Information not available 10/28/2022 Do You Have Difficulty Walking Or Climbing Stairs? No [email or web address] Information not available 10/28/2022 Sex: Unknown Functional Status Question Answer Note LastModified by Organizat ion Details LastModified Time Do you use any illicit or recreational drugs? No [email or web address] Information not available 11/30/2022 What is your level of alcohol consumption? None [email or web address] Information not available 11/30/2022 Do you have transportation difficulties? No [email or web address] Information not available 10/28/2022 Are you able to walk independently without assistance or assistive devices? YESWOREST Information not available 10/28/2022 Do you have difficulty doing errands alone? No Information not available 10/28/2022 Are you able to care for yourself independently? Yes [email or web address] Information not available 10/28/2022 Do you have difficulty dressing, bathing, grooming, or toileting? No [email or web address] Information not available 10/28/2022 Mental Status Question Answer Note LastModified by Organization D etails LastModified Time Do you have difficulty concentrating, remembering or making decisions? No [email or web address] Information no t available 10/28/2022 Family History [...] 50 mcg/0.5 mL 3 completed ANNMARIE DARDEN, DAQUAN [address] [place], [address], [facility] 05/23/2023 19:18:05 Influenza, split virus, quadrivalent, PF 3 completed DAQUAN SALDANA [address] [place], [address], [facility] 06/17/2023 13:09:34 Influenza, adjuvanted, trivalent, PF 4 completed Not Available [facility] 06/17/2025 15:37:41 COVID-19, mRNA, LNP-S, PF, candy-sucrose, 30 mcg/0.3 mL 4 completed Not Available [facility] 06/17/2025 15:37:41 COVID-19, mRNA, LNP-S, PF, 100 mcg/0.5mL dose or 50 mcg/0.25mL dose 1 completed ANNMARIE DARDEN, [address], [address], [facility] 05/23/2023 19:18:05 COVID-19, mRNA, LNP-S, PF, 100 mcg/0.5mL dose or 50 mcg/0.25mL dose 1 completed ANNMRAIE DARDEN, [address], [address], [facility] 05/23/2023 19:18:05 COVID-19, mRNA, LNP-S, PF, 100 mcg/0.5mL dose or 50 mcg/0.25mL dose 1 completed ANNMARIE DARDEN [address], [address], [facility] 05/23/2023 19:18:05 COVID-19, mRNA, LNP-S, bivalent, PF, 50 mcg/0.5 mL or 25mcg/0.25 mL dose 2 completed ANNMARIE DARDEN [address], [address], [facility] 05/23/2023 19:18:05 influenza, unspecified formulation 8 completed ANNMARIE DARDEN, [address], [address], [facility] 05/23/2023 19:18:05 Tdap 7 completed ANNMARIE DARDEN, [facility] [address] [place] [address], [address], [facility] 05/23/2023 19:18:05 Tdap 3 completed ANNMARIE DARDEN, [address], [address], [facility] 05/23/2023 19:18:05 Influenza, split virus, trivalent, PF 3 completed ANNMARIE DARDEN, [facility] [address] [place] [address], [address], [facility] 05/23/2023 19:18:05 Influenza, split virus, quadrivalent, PF 2 completed ANNMARIE DARDEN, [address], [address], [facility] 05/23/2023 19:18:05 Influenza, split virus, quadrivalent, PF 1 completed ANNMARIE DARDEN, [address], [address], [facility] 05/23/2023 19:18:05 Influenza, adjuvanted, trivalent, PF 5 completed Not Available [facility] 06/17/2025 15:37:41 Influenza, split virus, trivalent, preservative 3 completed Not Available [facility] 08/11/2023 12:10:09 Tdap 7 completed Not Available [facility] 08/11/2023 12:10:09 Past Encounters Encounter ID Performer Location Encounter Start Date Encounter Closed Date Diagnosis/Indication Diagnosis SNOMED-CT Code Diagnosis ICD10 Code Diagnosis IMO Codes Diagnosis Note [id number] DAQUAN MCELROY [facility] [address] [place] [address] 06/17/2025 15:36:42 06/17/2025 15:52:38 [facility] [id number] R00.0 19880 Health Concerns Section Related Observation LastModified by Organization Detai ls LastModified Time None Recorded Concern Status LastModified by Organization Details LastModified Time None Recorded Payers Encounter Date Sequence Insurance Name Policy Number Policy Mendes Covered Member ID Mendes Member ID Guarantor Name 06/17/2025 1 [employer] [id number] Lisa Morrison [id number] Lisa Morrison Notes Date Note Type Note Provider Name and Address Organization Details Recorded Time 06/17/2025 text/html [employer], Headache, pain when taking a deep breath x3 days. Nausea, vomiting x1 day. DAQUAN MCELROY [address] [place] [address], [phone], [facility] [facility] [place] [facility] 06/17/2025 15:52:38 OBGyn Episode No OBEpisode recorded.
--- OUTSIDE RECORDS SUMMARY | 2025-06-17 15:05 | XMS_ITS | Encounter Summary ---
Author Organization [facility] Address [address] [place] [address] Care Team Providers Care Gum Machine Filler Name Role Phone Kimo Sanchez MD Primary Care Provider [phone] Encounter Details Date Type Department Care Team (Late st Contact Info) Description 06/07/2019 Lab Requisition [facility] Services [address] [place] [address] Lew Maldonado, [address] [address] Social History Tobacco Use Types Packs/Day Years Used Date Smoking Tobacco: Never Smokeless Tobacco: Never Alcohol Use Standard Drinks/Week Comments Yes 0 (1 standard drink = 0.6 oz pur e alcohol) Comments No Sex and Gender Information Value Date Recorded Sex Assigned at Not on file Legal Sex Female 3:35 AM ZMT OPERATOR Gender Identity Not on file Sexual Orientation Not on file Occupation Industry Job Start Date Job End Date Not on file Not on file Not on file Not on file documented as of this encounter Plan of Treatment Not on file documented as of this encounter Procedures Procedure Name Priority Date/Time Associated Diagnosis Comments HEMOGLOBIN A1C Routine 06/07/2019 9:00 AM CDT LIPID PANEL Routine 06/07/2019 9:00 AM CDT documented in this encounter Results * HEMOGLOBIN A1C (06/07/2019 9:00 AM CDT) HEMOGLOBIN A1C 5.1 <=5.6 % 06/10/2019 7:50 AM ZMT OPERATOR [facility] EST. AVG GLUCOSE, A1C 100 mg/dL 06/10/2019 7:50 AM [facility] Blood Collection / Unknown 06/07/2019 9:00 AM CDT 06/07/2019 5:06 PM CDT [facility] - 06/10/2019 7:50 AM ZMT OPERATOR HGB A1C INTERPRETATION NORMAL: <5.7% PRE-DIABETES: 5.7 - 6.4% DIABETES: 6.5% OR GREATER Lew Maldonado DO CHEMISTRY ORDERABLES Final R esult [facility] CLIA# [id number] [address] [place] [address] * (ABNORMAL) LIPID PANEL (06/07/2019 9:00 AM CDT) CHOLESTEROL 199 <200 mg/dL 06/07/2019 6:07 PM CDT [facility] TRIGLYCERIDE 101 <150 mg/dL 06/07/2019 6:07 PM CDT [facility] HDL 50 40 - 59 mg/dL 06/07/2019 6:07 PM T [facility] LDL CALCULATED 129(H) <100 mg/dL 06/07/2019 6:07 PM CDT [facility] NON-HDL CHOLESTEROL 149(H) <130 mg/dL 06/07/2019 6:07 PM T [facility] Blood Collection / Unknown 06/07/2019 9:00 AM CDT 06/07/2019 5:24 PM CDT [facility] - 06/07/2019 6:07 PM CDT TOTAL CHOLESTEROL mg/dL Desirable <200 Borderline high 200-239 High >=240 TRIGLYCERIDES mg/dL Normal <150 Borderline high 150-199 High 200-499 Very high >=500 HDL CHOLESTEROL mg/dL Low <40 Normal 40-59 Desirable >=60 NON HDL CHOLESTEROL mg/dL Optimal <130 Near Optimal 130-159 Borderline High 160-189 Very High >=190 Calculated LDL mg/dL Optimal <100 Near Optimal 100-129 Borderline High 130-159 High 160-189 Very High >=190 ATPIII Guidelines Reference Ranges for Lipid Panels (NCEP/AMA) Lew Maldonado DO CHEMISTRY ORDERABLES Final R esult [facility] CLIA# [id number] [address] [place] [address] documented in this encounter Visit Diagnoses Not on filedocumented in this encounter Care Teams Gum Machine Filler Relationship Specialty Start Date End Date Kimo Sanchez MD [address] [place] [address] PCP - General 07/22/04 documented as of this encounter
--- OUTSIDE RECORDS SUMMARY | 2025-06-17 15:05 | XMS_ITS | Encounter Summary ---
Author Organization [facility] Address [address] [place] [address] Care Team Providers Care Inventory Analyst Name Role Phone Kimo Sanchez MD Primary Care Provider [phone] Reason for Referral * MRI (Routine) - Closed Specialty Diagnoses / Procedures Referred By Doron crockett Referred To Contact Radiology Diagnoses Axillary pain, right Procedures MRI BREAST W WO CONT BILAT Renay Sandhu FNP [address] [place] [address] Phone: tel: fax: [facility] MRI [address] [place] [address] Phone: tel: fax: Referral ID Status Reason Start Date Expiration Date V isits Requested Visits Authorized [id number] Closed F [facility] TO SCHEDULE (SGF) 02/04/2020 03/06/2021 1 1 Encounter Details Date Type Department Care Team (Late st Contact Info) Description 02/04/2020 Ancillary Orders [facility] Pre-Registration [place] CALL TO MAKE APPOINTMENT ONLY [address] [place] [address] Renay Sandhu FNP [address] [place] [address] Axillary pain, right Social History Tobacco Use Types Packs/Day Years Used Date Smoking Tobacco: Never Smokeless Tobacco: Never Alcohol Use Standard Drinks/Week Comments Yes 0 (1 standard drink = 0.6 oz pur e alcohol) Comments No Sex and Gender Information Value Date Recorded Sex Assigned at Not on file Legal Sex Female 3:35 AM SOLVENT PROCESS EXTRACTOR OPERATOR Gender Identity Not on file Sexual Orientation Not on file Occupation Industry Job Start Date Job End Date Not on file Not on file Not on file Not on file COVID-19 Exposure Response Date Recorded In the last month, have you been in contact with someone who was confirmed or suspected to have Coronavirus / COVID-19? No / Unsure 02/04/2020 2:50 PM CDT documented as of this encounter Plan of Treatment Not on file documented as of this encounter Results * MRI BREAST W WO CONT BILAT (02/21/2020 10:40 AM CDT) Anatomical Region Laterality Modality Breast Bilateral Magnetic Resonan ce 02/21/2020 11:0 0 AM CDT Impressions 02/24/2020 7:27 AM CDT : Unremarkable bilateral breast MRI in a patient with previous bilateral reduction surgeries, as noted. The right axillary area appears unremarkable. Therefore her historical axillary pain will have to be correlated clinically. From an imaging standpoint, I would recommend routine annual screening mammograms with her next in June 2020. [id number] Narrative 02/24/2020 7:27 AM CDT BILATERAL BREAST MRI: HISTORY: This 44-year-old female presents for bilateral breast MRI because of history of right axillary pain. She has had bilateral breast reduction surgery. Her last screening mammogram was 06/11/2019, which revealed postreduction changes. TECHNIQUE: Bilateral breast imaging was performed utilizing the dedicated breast coil in the following sequences...axial T1 non-fat-sat, axial T2 fat-sat images, axial STIR images, dynamic T1 axial fat-sat 3-D gradient images precontrast followed by two sequential post-contrast imaging sets. A hi-resolution axial sequence, followed by the third post-contrast gradient axial images. Post-processing was performed on a [employer] system (2.2 version) obtaining registered images, kinetic curves, MPR, MIP, and subtraction images. BACKGROUND ENHANCEMENT: Mild FINDINGS: RIGHT BREAST: Appearance is consistent with post reduction scarring, with some mild scattered enhancement. No mass or area of suspicion is seen. The axillary area and internal mammary area appear unremarkable. LEFT BREAST: Appearance is consistent with postreduction scarring, with some scattered areas of enhancement. No mass or area of suspicion is seen. The axillary area and internal mammary area appear unremarkable. Renay Sandhu SENIOR MICROSTRATEGY DEVELOPER MR ORDERABLES Final Result documented in this encounter Visit Diagnoses Diagnosis Axillary pain, right Axillary pain, right documented in this encounter Care Teams Inventory Analyst Relationship Specialty Start Date End Date Kimo Sanchez MD [address] [address] PCP - General 07/22/04 documented as of this encounter
--- OUTSIDE RECORDS SUMMARY | 2025-06-17 15:05 | XMS_ITS | Encounter Summary ---
Author Organization [facility] Address [address] [place] [address] Care Team Providers Care Sap Hana Developer Name Role Phone Kimo Sanchez MD Primary Care Provider [phone] Encounter Details Date Type Department Care Team (Latest Contact Info) Description 02/03/2004 Outpatient Historical [facility] [address] 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
--- OUTSIDE RECORDS SUMMARY | 2025-06-17 15:05 | XMS_ITS | Encounter Summary ---
Author Organization [facility] Address [address] [place] [address] Care Team Providers Care Windows Systems Administrator Name Role Phone Kimo Sanchez MD Primary Care Provider [phone] Encounter Details Date Type Department Care Team (Latest Contact Info) Description 10/25/2006 Outpatient Historical [facility] Head and Neck Surgery[address] [place] [address] Shabbir Delarosa MD [address] [facility] [address] [place] [address] Deviated Nasal Septum (Primary Dx); Hypertrph Nasal Turbinat Social History Tobacco Use Types Packs/Day Years Used Date Smoking Tobacco: Never Assessed Comments Unknown Sex and Gender Information Value Date Recorded Sex Assigned at Not on file Legal Sex Female 3:35 AM DELIVERY TECHNICIAN Gender Identity Not on file Sexual Orientation Not on file documented as of this encounter Plan of Treatment Not on file documented as of this encounter Visit Diagnoses Diagnosis Deviated nasal septum- Primary Hypertrph nasal turbinat Hypertrophy of nasal turbinates documented in this encounter Care Teams Windows Systems Administrator Relationship Specialty Start Date End Date Kimo Sanchez MD [address] [facility] 1 [place], [place] [address] PCP - General 07/22/04 documented as of this encounter
--- OUTSIDE RECORDS SUMMARY | 2025-06-17 15:06 | XMS_ITS | Patient Health Record ---
Author Organization [facility] Address [address] [place] [address] Care Team Providers Care Cook Pickled Meat Name Role Phone Kiom Sanchez Primary Care Provider Amee Dangelo Unavailable Lobo Millerssica Unavailable [phone] Allergies Allergen (clinical drug ingredient) Drug/Non Drug Allergy documented on EMR Reaction Allergy Type Onset Date Status tramadol Tramadol Unknown Drug Allergy Active Results Component Value Reference Range Notes Fluoro Needle For Placement - Spine 48804 Reviewed date:10/02/2024 12:09:01 PM Interpretation: Performing Lab: Notes/Report: Reason For Referral No Information Medications Medication SIG (Take, Route, Frequency, Duration) Notes Start Date End Date Status ALPRAZolam 0.25 MG Tablet 1 tablet Orall y Twice a day Active Pantoprazole Sodium 40 MG Tablet Delayed Release 1 tablet 1/2 to 1 hour before morning meal Orally Once a day Active Linzess 145 MCG Capsule [address] 30 minutes before the first meal of the day on an empty stomach Orally Once a day Active Vitamin D3 Active predniSONE 10 MG (21) Tablet Therapy Pack as directed Orally Ac tive Albuterol Sulfate 108 (90 Base) MCG/ACT Aerosol Powder Breath Activated 1 puff as needed Inhalation every 4 hrs Not-David garcia Social History Tobacco Use: Social History Observation [...] Status Risk Notes Problem Chronic pain syndrome (083644880) Chronic pain syndrome (G89.4) Active confirmed Problem Lumbosacral radiculopathy (8799071) Radiculopathy, lumbosacral region (M54.17) Active confirmed Problem Lumbosacral spondylosis without myelopathy (30816139) Spondylosis of lumbosacral region without myelopathy or radiculopathy (M47.817) Active confirmed Problem Lumbosacral radiculopathy (8156445) Radiculopathy of lumbosacral region (M54.17) Active confirmed Vital Signs Height-cm 172.72 cm 02/13/2025 Weight-kg 104.33 kg 02/13/2025 Height 68 in 02/13/2025 Weight 230 lbs 02/13/2025 BMI 34.97 kg/m2 02/13/2025 Procedures Procedure Date Ordered Date Performed Result Body Sit e Epidural, Transforaminal, Lumbar/Sacral, single level, w/ imaging guidance - 68224 10/02/2024 10/02/2024 N/A Conscious Sedation, Professi onal Only - 26697 10/02/2024 10/02/2024 N/A Facet Inj. / MBB Lumbar/Sacr al, 2 levels - 44796, 91240 12/04/2024 12/04/202412-04 #1 Facet Inj. / MBB Lumbar/Sacr al, 2 levels - 48007, 80084 01/30/2025 01/30/2025 N/A Encounters Encounter Location Date Provider Diagnosis [facility] [place] [address] [facility] [place] [address] 02/13/2025 Consuelo Miller Chronic pain syndrome G89.4 ; Radiculopathy of lumbosacral region M54.17 ; Synovial cyst of lumbar facet joint M71.38 ; Disorders of sacrum M53.3 ; Myalgia, other site M79.18 ; Acute pain of right hip M25.551 ; Drug therapy continued Z79.899 and Spondylosis of lumbosacral region without myelopathy or radiculopathy M47.817 [facility] [place] [address] [facility] [place] [address] 10/15/2024 Amee Lyuksyutova-Pric e Chronic pain syndrome G89.4 ; Radiculopathy of lumbosacral region M54.17 ; Synovial cyst of lumbar facet joint M71.38 ; Disorders of sacrum M53.3 ; Myalgia, other site M79.18 ; Acute pain of right hip M25.551 and Spondylosis of lumbosacral region without myelopathy or radiculopathy M47.817 Former[facility] [address] [place] [address] 08/20/2024 Amee Lyuksyutova-Pric e Chronic pain syndrome G89.4 ; Radiculopathy of lumbosacral region M54.17 ; Synovial cyst of lumbar facet joint M71.38 ; Disorders of sacrum M53.3 ; Myalgia, other site M79.18 and Acute pain of right hip M25.551 [facility] [address] [place] [address] 01/30/2025 Amee Lyuksyutova-Pric e Spondylosis of lumbosacral region without myelopathy or radiculopathy M47.817 [facility] [address] [place] [address] 12/04/2024 Amee Lyuksyutova-Pric e Spondylosis of lumbosacral region without myelopathy or radiculopathy M47.817 [facility] [address] [place] [address] 10/02/2024 Amee Lyuksyutova-Pric e Radiculopathy of lumbosacral region M54.17 [facility] [address] [place] [address] 07/29/2024 Amee Lyuksyutova-Pric e [facility] [address] [place] [address] 07/26/2024 Amee Lyuksyutova-Pric e [facility] [address] [place] [address] 07/24/2024 Amee Arreola-Pric e [facility] [place] [address] [place] [address] 07/23/2024 Amee Arreola-Pric e [facility] [address] [place] [address] 07/19/2024 Amee Arreola-Pric e [facility] [place] [address] [place] [address] 06/18/2024 Amee Arreola-Pric e [facility] [place] [address] [place] [address] 06/18/2024 Amee Arreola-Pric e [facility] [address] [place] [address] 08/18/2024 Amee Arreola-Pric e Chronic pain syndrome G89.4 ; Radiculopathy of lumbosacral region M54.17 ; Synovial cyst of lumbar facet joint M71.38 ; Impaired mobility and activities of daily living Z74.09 ; Disorders of sacrum M53.3 ; Acute pain of right hip M25.551 and Myalgia, other site M79.18 [facility] [address] [place] [address] 08/06/2024 Amee Arreola-Pric e Assessments Encounter Date Diagnosis (ICD Code) Assessment Notes Treatment Notes Treatment Clinical Notes Section Notes 08/18/2024 Chronic pain syndrome (ICD-10 - G89.4) Ms. Morrison is a very pleasant patient that has imaging, history, and physical exam consistent with pain generated from radiculopathy of the lumbosa cral region. Patient has tried conservative measures including [...] of lumbosacral region (ICD-10 - M54.17) Ms. Morrison is a very pleasant patient that has imaging, history, and physical exam consistent with pain generated from radiculopathy of the lumbosa cral region. Patient has tried conservative measures including [...] epidural steroid injection after reviewing the disc 08/20/2024 Chronic pain syndrome (ICD-10 - G89.4) Ms. Morrison is a very pleasant patient with history and physical exam consistent of lumbosacral radiculopathy affecting the right extremity. She has a facet cyst at the right L4/5 that is abutting the L5 nerve root at that level. I discussed with her performing a right sided L4/5 facet cyst aspiration as well as a L4/5 TFESI at the same time in order to calm down the radicular component of her pain. Risks and expectations of the procedure were discussed with the patient, and she agreed to proceed. 10/02/2024 Radiculopathy of lumbosacral region (ICD-10 - M54.17) 10/15/2024 Chronic pain syndrome (ICD-10 - G89.4) Ms. Morrison is a very pleasant patient with history and physical exam consistent of lumbosacral radiculopathy. I had done a right l4/L5 facet cyst aspiration and L4/L5 TFESI. It is medically necessary to repeat this procedure with a different steroid and target the L5 nerve as it traverses at L4/L5 and exits at L5/S1 with a right L4/L5 and L5/S1 TFESI w/ sedation. The options for treatment were explained in detail, this included PT, medications, injections, lifestyle modifications and exercise. The patient presents to clinic for medication evaluation and management. The patient is stable on their current medication regimen and endorses adequate analgesia, increased ADLs, denies abuse and side effects. The STAFFING COORDINATOR was reviewed with no untoward events noted. UDS reviewed and is as expected. A bowel regimen was discussed with the patient. 08/20/2024 Radiculopathy of lumbosacral region (ICD-10 - M54.17) 12/04/2024 Spondylosis of lumbosacral region without myelopathy or radiculopathy (ICD-10 - M47.817) 10/15/2024 Radiculopathy of lumbosacral region (ICD-10 - M54.17) 01/30/2025 Spondylosis of lumbosacral region without myelopathy or radiculopathy (ICD-10 - M47.817) 02/13/2025 Chronic pain syndrome (ICD-10 - G89.4) I had a nice discussion with the patient today regarding her chronic pain complaints. She continues with neuraxial lower back pain as well as hip pain. She is status post bilateral lumbar medial branch blocks x 2 which she reports helped relieve her pain at least 80% for a couple of hours. She was able to function better than during that time although she does feel that the first medial branch block did help a little better than the second 1 and as she was having a lot of muscle spasms after the second block. After discussion, she would like to proceed with bilateral lumbar rhizotomies at L4-5 and L5-S1. I did discuss procedure risks and details with the patient including what to expect during and after the procedure. I discussed lifestyle modifications with her today. She will return to clinic after procedure to evaluate for treatment effectiveness. The patient continues with chronic pain requiring treatment to help restore function and improve quality of life. Patient is advised that best long-term goals include increased activity, core strengthening, proper weight management, coping strategies, avoidance of painful triggers, and targeted interventional therapy. We will see the patient for routine follow up in accordance with all clinic policies. We will continue to stress nonopioid treatment. 02/13/2025 Radiculopathy of lumbosacral region (ICD-10 - M54.17) 02/13/2025 Synovial cyst of lumbar facet joint (ICD-10 - M71.38) 10/15/2024 Synovial cyst of lumbar facet joint (ICD-10 - M71.38) 08/20/2024 Synovial cyst of lumbar facet joint (ICD-10 - M71.38) 08/18/2024 Synovial cyst of lumbar facet joint (ICD-10 - M71.38) Ms. Morrison is a very pleasant patient that has imaging, history, and physical exam consistent with pain generated from radiculopathy of the lumbosa cral region. Patient has tried conservative measures including [...] of daily living (ICD-10 - Z74.09) Ms. Morrison is a very pleasant patient that has imaging, history, and physical exam consistent with pain generated from radiculopathy of the lumbosa cral region. Patient has tried conservative measures including [...] epidural steroid injection after reviewing the disc 08/20/2024 Disorders of sacrum (ICD-10 - M53.3) 10/15/2024 Disorders of sacrum (ICD-10 - M53.3) 02/13/2025 Disorders of sacrum (ICD-10 - M53.3) 02/13/2025 Myalgia, other site (ICD-10 - M79.18) 10/15/2024 Myalgia, other site (ICD-10 - M79.18) 08/18/2024 Disorders of sacrum (ICD-10 - M53.3) Ms. Morrison is a very pleasant patient that has imaging, history, and physical exam consistent with pain generated from radiculopathy of the lumbosa cral region. Patient has tried conservative measures including [...] epidural steroid injection after reviewing the disc 08/20/2024 Myalgia, other site (ICD-10 - M79.18) 08/20/2024 Acute pain of right hip (ICD-10 - M25.551) 08/18/2024 Acute pain of right hip (ICD-10 - M25.551) Ms. Morrison is a very pleasant patient that has imaging, history, and physical exam consistent with pain generated from radiculopathy of the lumbosa cral region. Patient has tried conservative measures including [...] epidural steroid injection after reviewing the disc 10/15/2024 Acute pain of right hip (ICD-10 - M25.551) 02/13/2025 Acute pain of right hip (ICD-10 - M25.551) 02/13/2025 Drug therapy continued (ICD-10 - Z79.899) 10/15/2024 Spondylosis of lumbosacral region without myelopathy or radiculopathy (ICD-10 - M47.817) 08/18/2024 Myalgia, other site (ICD-10 - M79.18) Ms. Morrison is a very pleasant patient that has imaging, history, and physical exam consistent with pain generated from radiculopathy of the lumbosa cral region. Patient has tried conservative measures including [...] epidural steroid injection after reviewing the disc 02/13/2025 Spondylosis of lumbosacral region without myelopathy or radiculopathy (ICD-10 - M47.817) 08/20/2024 Ericka Austin am scribing for Dr. Nicole. Dr. Corey Smith, personally performed the services described in this documentation, as scribed by Ericka De Guzman, and it is both accurate and complete. Patient has imaging, history, and physical exam consistent with pain generated from radiculopathy of the lumbosacral region. Patient has tried conservative measures including medication with limited benefit including medications to include gabapentin if they could tolerate it and physical therapy including home exercise regimen under a physician's guidance for at least 6 weeks. They [...] medications, injections, lifestyle modifications and exercise. Proceed with Right L4/L5 FACET CYST ASPIRATION AND RIGHT L4/L5 TFESI with sedation The aforementioned procedure is medically necessary to be performed with minimal sedation. This sedation is necessary to ensure patient comfort and cooperation, while also minimizing anxiety and discomfort. 10/15/2024 Ericka Austin am scribing for Dr. Nicole. Dr. Corey Smith, personally performed the services described in this documentation, as scribed by Ericka De Guzman, and it is both accurate and complete. Plan Of Treatment No Information Insurance Providers Payer Name Payer Address Payer Phone Subscriber Number Group Number Insured Name Patient Relationship to Insured Coverage Start Date Coverage End Date [employer] [address] [address] [place], [place] [phone] [id number] Lisa Morrison Self - patient is the insured Medical (General) History Medical History History ICD Code Joint pain/Arthritis Hyperlipidemia Anxiety Gastroesophageal reflux Fatigue Surgical History Surgery Date(Month/Year) left knee surgeries X8 right knee X1 left ankle X1 abdominal cyst removal breast cyst removed Left breast reduction both left rotator cuff repair left septoplasty Hospitalization History Reason Date(Month/Year) See Surgical Hx
--- OUTSIDE RECORDS SUMMARY | 2025-06-17 15:06 | XMS_ITS | Encounter Summary ---
Author Organization [facility] Address [address] [place] [address] Care Team Providers Care Financial Operations Analyst Name Role Phone Kimo Sanchez MD Primary Care Provider [phone] Encounter Details Date Type Department Care Team (Latest Contact Info) Description 08/23/2006 Outpatient Historical [facility] Ear, Nose and Throat [address] 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
--- OUTSIDE RECORDS SUMMARY | 2025-06-17 15:06 | XMS_ITS | Encounter Summary ---
Author Organization [facility] Address [address] [place] [address] Care Team Providers Care Liquor Tester Name Role Phone Kimo Sanchez MD Primary Care Provider [phone] Encounter Details Date Type Department Care Team (Latest Contact Info) Description 08/12/2004 Outpatient Historical [facility] Orthopedics- [address] [place] [address] Sergio Ruiz MD NO ADDRESS ON FILE Chondromalacia patellae (Primary Dx) Social History Tobacco Use Types Packs/Day Years Used Date Smoking Tobacco: Never Assessed Comments Unknown Sex and Gender Information Value Date Recorded Sex Assigned at Not on file Legal Sex Female 3:35 AM PROGRAM DIRECTOR/TRAFFIC DIRECTOR Gender Identity Not on file Sexual Orientation Not on file documented as of this encounter Plan of Treatment Not on file documented as of this encounter Visit Diagnoses Diagnosis Chondromalacia patellae- Primary Chondromalacia of patella documented in this encounter Care Teams Liquor Tester Relationship Specialty Start Date End Date Kimo Sanchez MD [address] [address] PCP - General 07/22/04 documented as of this encounter
--- OUTSIDE RECORDS SUMMARY | 2025-06-17 15:06 | XMS_ITS | Encounter Summary ---
Author Organization [facility] Address [address] [place] [address] Care Team Providers Care Casting Machine Operator Name Role Phone Kimo Sanchez MD Primary Care Provider [phone] Encounter Details Date Type Department Care Team (Late st Contact Info) Description 12/12/2012 Ancillary Orders [facility] OBGYN-[place] [address] [facility] [address] [place] [address] Lizy Elizalde MD [address] [facility] [address] [place] [address] Advanced maternal age in (Primary Dx); HRP (high risk ) Social History Tobacco Use Types Packs/Day Years Used Date Smoking Tobacco: Never Smokeless Tobacco: Never Alcohol Use Standard Drinks/Week Comments Yes 0 (1 standard drink = 0.6 oz pur e alcohol) Comments Yes Sex and Gender Information Value Date Recorded Sex Assigned at Not on file 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 Gender Identity Not on file Sexual Orientation Not on file Occupation Industry Job Start Date Job End Date Not on file Not on file Not on file Not on file documented as of this encounter Plan of Treatment Not on file documented as of this encounter Results * US OB DETAIL SINGLE GEST (02/05/2013 8:51 AM CDT) Anatomical Region Laterality Modality Pelvis Ultrasound us Lizy Elizalde MD ORDERABLES Final Resu lt documented in this encounter Visit Diagnoses Diagnosis Advanced maternal age in - Primary Elderly multigravida unspecified as to episode of care or not applicable HRP (high risk ) Unspecified high-risk documented in this encounter Care Teams Casting Machine Operator Relationship Specialty Start Date End Date Kimo Sanchez MD [address] [place] [address] PCP - General 07/22/04 documented as of this encounter
--- OUTSIDE RECORDS SUMMARY | 2025-06-17 15:06 | XMS_ITS | Encounter Summary ---
Author Organization [facility] Address [address] [place] [address] Care Team Providers Care Set Builder Name Role Phone Kimo Sanchez MD Primary Care Provider [phone] Encounter Details Date Type Department Care Team (Latest Contact Info) Description 10/24/[address] [facility] Sports Medicine [address] [place] [address] Sergio Ruiz MD NO ADDRESS ON FILE SPRAIN CRUCIATE LIG KNEE (Primary Dx) Social History Tobacco Use Types Packs/Day Years Used Date Smoking Tobacco: Never Assessed Comments Unknown Sex and Gender Information Value Date Recorded Sex Assigned at Not on file Legal Sex Female 3:35 AM CRITICAL CARE PARAMEDIC Gender Identity Not on file Sexual Orientation Not on file documented as of this encounter Plan of Treatment Not on file documented as of this encounter Visit Diagnoses Diagnosis Sprain of cruciate ligament of knee- Primary documented in this encounter Care Teams Set Builder Relationship Specialty Start Date End Date Kimo Sanchez MD [address] [address] PCP - General 07/22/04 documented as of this encounter
--- OUTSIDE RECORDS SUMMARY | 2025-06-17 15:06 | XMS_ITS | Encounter Summary ---
Author Organization [facility] Address [address] [place] [address] Care Team Providers Care Talent Development Analyst Name Role Phone Kimo Sanchez MD Primary Care Provider [phone] Encounter Details Date Type Department Care Team (Late st Contact Info) Description 07/09/2020 Ancillary Orders [facility] Pre-Registration [place] CALL TO MAKE APPOINTMENT ONLY [address] [place] [address] Lizy Elizalde MD [address] [facility] [place] [address] Encounter for screening mammogram for breast cancer Social History Tobacco Use Types Packs/Day Years Used Date Smoking Tobacco: Never Smokeless Tobacco: Never Alcohol Use Standard Drinks/Week Comments Yes 0 (1 standard drink = 0.6 oz pur e alcohol) Comments No Sex and Gender Information Value Date Recorded Sex Assigned at Not on file Legal Sex Female 3:35 AM ACTIVITIES DIRECTOR SCOUTING Gender Identity Not on file Sexual Orientation Not on file Occupation Industry Job Start Date Job End Date Not on file Not on file Not on file Not on file COVID-19 Exposure Response Date Recorded In the last month, have you been in contact with someone who was confirmed or suspected to have Coronavirus / COVID-19? No / Unsure 07/09/2020 12:51 PM ACTIVITIES DIRECTOR SCOUTING documented as of this encounter Plan of Treatment Not on file documented as of this encounter Visit Diagnoses Diagnosis Encounter for screening mammogram for breast cancer documented in this encounter Care Teams Talent Development Analyst Relationship Specialty Start Date End Date Kimo Sanchez MD [address] [place] [address] PCP - General 07/22/04 documented as of this encounter
--- OUTSIDE RECORDS SUMMARY | 2025-06-17 15:06 | XMS_ITS | Encounter Summary ---
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
--- OUTSIDE RECORDS SUMMARY | 2025-06-17 15:06 | XMS_ITS | Encounter Summary ---
Author Organization [facility] Address [address] [place] [address] Care Team Providers Care Candy Feeder Name Role Phone Kimo Sanchez MD Primary Care Provider [phone] Reason for Referral * Radiology Services (Routine) - Closed Specialty Diagnoses / Procedures Referred By Doron crockett Referred To Contact Diagnoses Cervical spondylosis with myelopathy Procedures XR FLUORO NEEDLE GUIDANCE SPINE Laura Kim DO [address] [place] [address] Phone: tel: fax: Referral ID Status Reason Start Date Expiration Date Visits Re quested Visits Authorized [id number] Closed 07/26/2018 08/26/2019 1 1 AL FUND MANAGER Encounter Details Date Type Department Care Team (Late st Contact Info) Description 07/26/2018 Ancillary Orders [facility] Pain Management Procedures [place] [address] [place] [address] Laura Kim DO [address] [place] [address] [address] Cervical spondylosis with myelopathy Social History Tobacco Use Types Packs/Day Years Used Date Smoking Tobacco: Never Smokeless Tobacco: Never Alcohol Use Standard Drinks/Week Comments Yes 0 (1 standard drink = 0.6 oz pur e alcohol) Comments No Sex and Gender Information Value Date Recorded Sex Assigned at Not on file Legal Sex Female 3:35 AM MUTUAL FUND MANAGER Gender Identity Not on file Sexual Orientation Not on file Occupation Industry Job Start Date Job End Date Not on file Not on file Not on file Not on file documented as of this encounter Plan of Treatment Not on file documented as of this encounter Results * XR FLUORO NEEDLE GUIDANCE SPINE (07/26/2018 9:43 AM MUTUAL FUND MANAGER) Narrative 07/26/2018 9:47 AM MUTUAL FUND MANAGER Order information only. Exam was auto-finalized. us Laura iKm DO DIAGNOSTIC IMAGING ORDERABLE S Final Result documented in this encounter Visit Diagnoses Diagnosis Cervical spondylosis with myelopathy Cervical spondylosis with myelopathy documented in this encounter Care Teams Candy Feeder Relationship Specialty Start Date End Date Kimo Sanchez MD [address] [place] [address] PCP - General 07/22/04 documented as of this encounter
--- OUTSIDE RECORDS SUMMARY | 2025-06-17 15:06 | XMS_ITS | Encounter Summary ---
Author Organization [facility] Address [address] [place] [address] Care Team Providers Care Paper Maker Name Role Phone Kimo Sanchez MD Primary Care Provider [phone] Reason for Referral * Radiology Services (Routine) - Closed Specialty Diagnoses / Procedures Referred By Doron crockett Referred To Contact Radiology Diagnoses Lump of breast, right Procedures MAMMO DIAG BILAT 3D PEGGY W OR WO CAD MAMMO DIAGNOSTIC BILATERAL W OR WO CAD MAMMO DIAGNOSTIC UNI RIGHT W OR WO CAD Lizy Elizalde MD Phone: tel: fax: [facility] [address] [facility] [address] [place] [address] Phone: tel: fax: Referral ID Status Reason Start Date Expiration Date Visits Re quested Visits Authorized [id number] Closed 05/17/2018 06/17/2019 1 1 Encounter Details Date Type Department Care Team (Late st Contact Info) Description 05/25/2018 Ancillary Orders [facility] Pre-Registration [place] CALL TO MAKE APPOINTMENT ONLY [address] [place] [address] Lizy Elizalde MD [address] [facility] [address] [place] [phone] Lump of breast, right Social History Tobacco Use Types Packs/Day Years Used Date Smoking Tobacco: Never Smokeless Tobacco: Never Alcohol Use Standard Drinks/Week Comments Yes 0 (1 standard drink = 0.6 oz pur e alcohol) Comments No Sex and Gender Information Value Date Recorded Sex Assigned at Not on file Legal Sex Female 3:35 AM RECONCILIATION ACCOUNTANT Gender Identity Not on file Sexual Orientation Not on file Occupation Industry Job Start Date Job End Date Not on file Not on file Not on file Not on file documented as of this encounter Plan of Treatment Not on file documented as of this encounter Results * MAMMO DIAG BILAT 3D PEGGY W OR WO CAD (05/25/2018 1:32 PM CDT) Anatomical Region Laterality Modality Breast Bilateral Mammography 05/25/2018 1:33 PM CDT Impressions 05/28/2018 7:22 AM CDT : No specific mammographic or sonographic evidence of malignancy. No abnormality visualized at the site of the patient's palpable lumps bilaterally. Clinical correlation/management is recommended as well as annual screening mammography. BI-RADS: 1 Recommendation: Annual screening mammography Recommendation Laterality: Bilateral [id number] Narrative 05/28/2018 7:22 AM CDT EXAM: MAMMO DIAG BILAT 3D PEGGY W OR WO CAD, MAMMO BREAST US BILAT [facility], 05/25/2018 1:32 PM CLINICAL INDICATIONS: 42-year-old woman [...] breast documented in this encounter Care Teams Paper Maker Relationship Specialty Start Date End Date Kimo Sanchez MD [address] [place] [address] PCP - General 07/22/04 documented as of this encounter
--- OUTSIDE RECORDS SUMMARY | 2025-06-17 15:06 | XMS_ITS | Encounter Summary ---
Author Organization [facility] Address [address] [place] [address] Care Team Providers Care Circuit Court Judge Name Role Phone Kimo Sanchez MD Primary Care Provider [phone] Encounter Details Date Type Department Care Team (Late st Contact Info) Description 12/12/2012 Ancillary Orders [facility] [address] [facility] 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
--- OUTSIDE RECORDS SUMMARY | 2025-06-17 15:06 | XMS_ITS | Encounter Summary ---
Author Organization [facility] Address [address] [place] [address] Care Team Providers Care Box Truck Owner Operator Name Role Phone Kimo Sanchez MD Primary Care Provider Encounter Details Date Type Department Care Team (Late st Contact Info) Description 09/18/2006 Outpatient Historical [facility] [address] [place] [place] [phone] George Starr MD [address] [place] [address] Obstructive Sleep Apnea (Primary Dx) Social History Tobacco Use Types Packs/Day Years Used Date Smoking Tobacco: Never Assessed Comments Unknown Sex and Gender Information Value Date Recorded Sex Assigned at Not on file Legal Sex Female 3:35 AM EMR ANALYST Gender Identity Not on file Sexual Orientation Not on file documented as of this encounter Plan of Treatment Not on file documented as of this encounter Visit Diagnoses Diagnosis Obstructive sleep apnea- Primary Obstructive sleep apnea (adult) (pediatric) documented in this encounter Care Teams Box Truck Owner Operator Relationship Specialty Start Date End Date Kimo Sanchez MD [address] [address] PCP - General 07/22/04 documented as of this encounter
--- OUTSIDE RECORDS SUMMARY | 2025-06-17 15:06 | XMS_ITS | Encounter Summary ---
Author Organization [facility] Address [address] [place] [address] Care Team Providers Care Ribbing Machine Operator Name Role Phone Kimo Sanchez MD Primary Care Provider [phone] Encounter Details Date Type Department Care Team (Late st Contact Info) Description 06/11/2025 External Device Data [place] ABSTRACTION Provider, Abstract NO ADDRESS ON FILE Social History Tobacco Use Types Packs/Day Years Used Date Smoking Tobacco: Never Smokeless Tobacco: Never Alcohol Use Standard Drinks/Week Comments Yes 2 (1 standard drink = 0.6 oz pur e alcohol) Only drink occasionally Feeling Safe Answer Date Recorded Are you in a relationship wi th someone who hurts you emotionally and/or physically? No 04/22/2025 Comments No Sex and Gender Information Value Date Recorded Sex Assigned at Not on file Legal Sex Female 4:10 AM INVOICE CLASSIFICATION CLERK Gender Identity Not on file Sexual Orientation Not on file documented as of this encounter Plan of Treatment Upcoming Encounters Date Type Department Care Team (Late st Contact Info) Description 11/25/2025 10:00 AM CDT Office Visit [facility] Breast Surgery [address] [place] [address] Daxa Lucia NP [address] [place] [address] 03/27/2026 10:30 AM CDT [facility] [address] [facility] [address] [place] [address] Joelle Sebastian MD [address] [facility] [address] [place] [address] documented as of this encounter Visit Diagnoses Not on filedocumented in this encounter Care Teams Ribbing Machine Operator Relationship Specialty Start Date End Date Kimo Sanchez MD [address] [facility] 1 [place] [address] PCP - General 07/22/04 documented as of this encounter
--- OUTSIDE RECORDS SUMMARY | 2025-06-17 15:06 | XMS_ITS | Encounter Summary ---
Author Organization [facility] Address [address] [place] [address] Care Team Providers Care Turkish Rubber Name Role Phone Kimo Sanchez MD Primary Care Provider [phone] Encounter Details Date Type Department Care Team (Late st Contact Info) Description 05/24/2018 Ancillary Orders [facility] [address] [facility] [address] [place] [address] Lizy Elizalde MD [address] [facility] [address] [place] [address] Lump of breast, right Social History Tobacco Use Types Packs/Day Years Used Date Smoking Tobacco: Never Smokeless Tobacco: Never Alcohol Use Standard Drinks/Week Comments Yes 0 (1 standard drink = 0.6 oz pur e alcohol) Comments No Sex and Gender Information Value Date Recorded Sex Assigned at Not on file Legal Sex Female 3:35 AM SENIOR LINUX SYSTEMS ADMINISTRATOR Gender Identity Not on file Sexual Orientation Not on file Occupation Industry Job Start Date Job End Date Not on file Not on file Not on file Not on file documented as of this encounter Plan of Treatment Not on file documented as of this encounter Results * MAMMO PRIOR STUDY (07/19/2011 10:35 AM SENIOR LINUX SYSTEMS ADMINISTRATOR) Narrative 05/24/2018 10:34 AM CDT This exam was auto finalized to allow images to be scanned to PACS. Lizy Elizalde MD DIAGNOSTIC IMAGING ORDERAB LES Final Result * MAMMO PRIOR STUDY (06/03/2008 10:35 AM CDT) Narrative 05/24/2018 10:34 AM CDT This exam was auto finalized to allow images to be scanned to PACS. Lizy Elizalde MD DIAGNOSTIC IMAGING ORDERAB LES Final Result documented in this encounter Visit Diagnoses Diagnosis Lump of breast, right Lump or mass in breast Lump of breast, right Lump or mass in breast Lump of breast, right Lump or mass in breast documented in this encounter Care Teams Turkish Rubber Relationship Specialty Start Date End Date Kimo Sanchez MD [address] [address] PCP - General 07/22/04 documented as of this encounter
--- OUTSIDE RECORDS SUMMARY | 2025-06-17 15:06 | XMS_ITS | Encounter Summary ---
Author Organization [facility] Address [address] [place] [address] Care Team Providers Care Commissioning Editor Name Role Phone Kimo Sanchez MD Primary Care Provider [phone] Encounter Details Date Type Department Care Team (Latest Contact Info) Description 10/09/[address] [facility] Ear, Nose and Throat [address] [place] [address] Shabbir Delarosa MD [address] [facility] [address] [place] [address] Deviated Nasal Septum (Primary Dx); Hypertrph Nasal Turbinat; Other Voice Disturbance; Esophageal Reflux Social History Tobacco Use Types Packs/Day Years Used Date Smoking Tobacco: Never Assessed Comments Unknown Sex and Gender Information Value Date Recorded Sex Assigned at Not on file Legal Sex Female 3:35 AM TECHNICAL ARTIST Gender Identity Not on file Sexual Orientation Not on file documented as of this encounter Plan of Treatment Not on file documented as of this encounter Visit Diagnoses Diagnosis Deviated nasal septum- Primary Hypertrph nasal turbinat Hypertrophy of nasal turbinates Other voice and resonance disorders Esophageal reflux documented in this encounter Care Teams Commissioning Editor Relationship Specialty Start Date End Date Kimo Sanchez MD [address] [facility] 1 [place] [address] PCP - General 07/22/04 documented as of this encounter
--- OUTSIDE RECORDS SUMMARY | 2025-06-17 15:06 | XMS_ITS | Encounter Summary ---
Author Organization [facility] Address [address] [place] [address] Care Team Providers Care Bag Checker Name Role Phone Kimo Sanchez MD Primary Care Provider [phone] Encounter Details Date Type Department Care Team (Late st Contact Info) Description 09/27/2006 Outpatient Historical [facility] [address] [place] [address] [place] [phone] George Starr MD [address] [place] [address] Unspecified Sleep Disturbance (Primary Dx) Social History Tobacco Use Types Packs/Day Years Used Date Smoking Tobacco: Never Assessed Comments Unknown Sex and Gender Information Value Date Recorded Sex Assigned at Not on file Legal Sex Female 3:35 AM STRUCTURAL IRON ERECTOR Gender Identity Not on file Sexual Orientation Not on file documented as of this encounter Plan of Treatment Not on file documented as of this encounter Visit Diagnoses Diagnosis Sleep disturbance, unspecified- Primary documented in this encounter Care Teams Bag Checker Relationship Specialty Start Date End Date Kimo Sanchez MD [address] [id number] PCP - General 07/22/04 documented as of this encounter
--- OUTSIDE RECORDS SUMMARY | 2025-06-17 15:06 | XMS_ITS | Encounter Summary ---
Author Organization [facility] Address [address] [place] [address] Care Team Providers Care Manager Core Name Role Phone Kimo Sanchez MD Primary Care Provider [phone] Encounter Details Date Type Department Care Team (Latest Contact Info) Description 09/23/2004 Outpatient Historical [facility] Sports Medicine [address] [place] [address] Sergio Ruiz MD NO ADDRESS ON FILE SPRAIN CRUCIATE LIG KNEE (Primary Dx) Social History Tobacco Use Types Packs/Day Years Used Date Smoking Tobacco: Never Assessed Comments Unknown Sex and Gender Information Value Date Recorded Sex Assigned at Not on file Legal Sex Female 3:35 AM DIRECTOR HEART Gender Identity Not on file Sexual Orientation Not on file documented as of this encounter Plan of Treatment Not on file documented as of this encounter Visit Diagnoses Diagnosis Sprain of cruciate ligament of knee- Primary documented in this encounter Care Teams Manager Core Relationship Specialty Start Date End Date Kimo Sanchez MD [address] [address] PCP - General 07/22/04 documented as of this encounter
--- OUTSIDE RECORDS SUMMARY | 2025-06-17 15:06 | XMS_ITS | Encounter Summary ---
Author Organization [facility] Address [address] [place] [address] Care Team Providers Care Special Collections Librarian Name Role Phone Kimo Sanchez MD Primary Care Provider [phone] Reason for Referral * Outpatient Services (Routine) - Closed Specialty Diagnoses / Procedures Referred By Doron crockett Referred To Contact Diagnoses Visit for screening mammogram Procedures MAMMO DIGITAL SCREEN BILAT Lizy Elizalde MD Phone: tel: fax: Referral ID Status Reason Start Date Expiration Date Visits Re quested Visits Authorized [id number] Closed 03/15/2016 04/15/2017 1 1 Encounter Details Date Type Department Care Team (Late st Contact Info) Description 03/15/2016 Ancillary Orders [facility] Pre-Registration Acc[place] CALL TO MAKE APPOINTMENT ONLY [address] [place] [address] Lizy Elizalde MD [address] [facility], [address] [address] Visit for screening mammogram (Primary Dx) Social History Tobacco Use Types Packs/Day Years Used Date Smoking Tobacco: Never Smokeless Tobacco: Never Alcohol Use Standard Drinks/Week Comments Yes 0 (1 standard drink = 0.6 oz pur e alcohol) Comments No Sex and Gender Information Value Date Recorded Sex Assigned at Not on file Legal Sex Female 3:35 AM DREDGE PUMP OPERATOR Gender Identity Not on file Sexual Orientation Not on file Occupation Industry Job Start Date Job End Date Not on file Not on file Not on file Not on file documented as of this encounter Plan of Treatment Not on file documented as of this encounter Results * MAMMO DIGITAL SCREEN BILAT (04/01/2016 10:09 AM CDT) Anatomical Region Laterality Modality Breast Bilateral Mammography Narrative 04/04/2016 10:51 AM CDT Bilateral Mammogram Reason for Exam: Screening Comparison: 07/19/2011 and 06/03/2008. Findings: Bilateral CC and MLO views were obtained. This examination was reviewed with the aid of a computer-aided detection system(CAD). The breast tissue density is average. I recommend that she see her physician for historical bilateral heaviness and thickening. No significant new findings since the prior mammogram(s). us Lizy Elizalde MD MAMMO ORDERABLES Final Res ult documented in this encounter Visit Diagnoses Diagnosis Visit for screening mammogram- Primary Other screening mammogram Visit for screening mammogram Other screening mammogram documented in this encounter Care Teams Special Collections Librarian Relationship Specialty Start Date End Date Kimo Sanchez MD [address] [address] PCP - General 07/22/04 documented as of this encounter
--- OUTSIDE RECORDS SUMMARY | 2025-06-17 15:06 | XMS_ITS | Encounter Summary ---
Author Organization [facility] Address [address] [place] [address] Care Team Providers Care Sleeping Car Conductor Name Role Phone Kimo Sanchez MD Primary Care Provider [phone] Encounter Details Date Type Department Care Team (Late st Contact Info) Description 02/02/2016 Ancillary Orders [facility] Pre-Registration [place] CALL TO MAKE APPOINTMENT ONLY [address] [place] [address] Lizy Elizalde MD [address] [facility] [address] [place] [address] Visit for screening mammogram (Primary Dx) Social History Tobacco Use Types Packs/Day Years Used Date Smoking Tobacco: Never Smokeless Tobacco: Never Alcohol Use Standard Drinks/Week Comments Yes 0 (1 standard drink = 0.6 oz pur e alcohol) Comments No Sex and Gender Information Value Date Recorded Sex Assigned at Not on file Legal Sex Female 3:35 AM SOLID WASTE COLLECTION WORKER Gender Identity Not on file Sexual Orientation Not on file Occupation Industry Job Start Date Job End Date Not on file Not on file Not on file Not on file documented as of this encounter Plan of Treatment Not on file documented as of this encounter Visit Diagnoses Diagnosis Visit for screening mammogram- Primary Other screening mammogram documented in this encounter Care Teams Sleeping Car Conductor Relationship Specialty Start Date End Date Kimo Sanchez MD [address] [address] PCP - General 07/22/04 documented as of this encounter
--- OUTSIDE RECORDS SUMMARY | 2025-06-17 15:06 | XMS_ITS | Encounter Summary ---
Author Organization [facility] Address [address] [place] [address] Care Team Providers Care Pocket Closer Name Role Phone Kimo Sanchez MD Primary Care Provider [phone] Encounter Details Date Type Department Care Team (Late st Contact Info) Description 08/02/2006 Outpatient Historical [facility] Dermatology- [address] [place] [address] [place] [address] Ralph Bell MD [address] [place] [address] Unspecified Hypertrophic and Atrophic Condition of Skin (Primary Dx); Other Seborrheic Keratosis; Benign Neoplasm of Skin of Other and Unspecified Parts of Face; Unspecified Disease of Sebaceous Glands Social History Tobacco Use Types Packs/Day Years Used Date Smoking Tobacco: Never Assessed Comments Unknown Sex and Gender Information Value Date Recorded Sex Assigned at Not on file Legal Sex Female 3:35 AM VOCATIONAL ADVISER Gender Identity Not on file Sexual Orientation Not on file documented as of this encounter Plan of Treatment Not on file documented as of this encounter Visit Diagnoses Diagnosis Unspecified hypertrophic and atrophic condition of skin- Primary Other seborrheic keratosis Benign neoplasm of skin of other and unspecified parts of face Unspecified disease of sebaceous glands documented in this encounter Care Teams Pocket Closer Relationship Specialty Start Date End Date Kimo Sanchez MD [address] [place] [address] PCP - General 07/22/04 documented as of this encounter
--- OUTSIDE RECORDS SUMMARY | 2025-06-17 15:06 | XMS_ITS | Clinical Summary ---
Author Organization [facility] Address [address] [place] [address] Care Team Providers Care Laboratory Immunologist Name Role Phone Kimo Sanchez MD Primary Care Provider [phone] Allergies Active Allergy Reactions Criticality Noted Date Comments Morphine Itching Low 01/24/2019 Tramadol Other (See Comments) 12/24/2018 Numbness/tingling of her lips and petechia across her stomach Medications cetirizine (ZyrTEC) 10 mg tablet Take 10 mg by mouth daily. Active predniSONE (DELTASONE) 5 mg tabletIndications :Tompkins disease (CMS/HCC),Primary adrenal insufficiency (CMS/HCC) Take 1 tab (5 mg) am and half tablet (2.5 mg) pm 45 Tablet 1 9 Active azelastine (ASTELIN) 137 mcg/actuation nasal spray Administer 2 Sprays in each nostril. 7 Active ascorbic acid, vitamin C, (VITAMIN C) 1,000 mg Tablet Take 1,000 mg by mouth. Active ALPRAZolam (XANAX) 0.5 mg tablet TAKE 1/2 TO 1 TABLET BY MOUTH TWICE DAILY NEEDED FOR STRESS 8 Active metFORMIN (GLUCOPHAGE) 500 mg tablet Take 500 mg by mouth daily. 0 Active predniSONE (DELTASONE) 10 mg tablet TAKE ONE TABLET BY MOUTH EVERY MORNING AND 1/2T IN THE EVENING 45 Tablet 3 1 Active cholecalciferol 1,250 mcg (50,000 unit) CapsuleIndication s:Hypovitaminosis D,Primary adrenal insufficiency (CMS/HCC) TAKE 1 CAPSULE BY MOUTH EVERY 14 DAYS 6 Capsule 3 1 Active pantoprazole (PROTONIX) 40 mg Tablet, Delayed Release (E.C.) 1 Active Active Problems Problem Noted Date Diagnosed Date Obesity (BMI 35.0-39.9 without comorbidity) 01/05 Hypovitaminosis D 01/22/2020 Spondylosis of cervical cari on without myelopathy or radiculopathy 09/25/2018 Primary adrenal insufficiency 07/12/2018 Irregular menstrual cycle 07/12/2018 Myalgia 07/12/2018 Multiple environmental allergies 01/17/2017 Well woman exam with routine gynecological exam 04/09/2015 Nasal turbinate hypertrophy 07/18/2011 Allergic rhinitis 2010 Resolved Problems Problem Noted Date Diagnosed Date Resolved Date Oral contraceptive pill surveillance 04/09/2015 07/18/2017 Vacuum extractor delivery, delivered 07/01/2013 08/14/2013 Overview (07/01/2013): Due to maternal exhaustion- pushing 2 hrs Maternal exhaustion complica ting labor and delivery 07/01/2013 08/14/2013 Post-dates 06/30/2013 014 delivery, without m ention of indication, unspecified as to episode of care(669.70) 06/30/2013 08/14/2013 Overview (06/30/2013): Elective Induction of labor Rh negative state in antepartum period 12/03/2012 08/14/2013 AMA (advanced maternal age) multigravida 35+ 3 08/14/2013 Allergic rhinitis, cause unspecified 10/29/2012 07/01/2013 Allergic rhinitis, cause unspecified 10/29/2012 07/01/2013 Supervision of high-risk pre gnancy of elderly primigravida 10/29/2012 08/14/2013 Unplanned 10/29/2012 04/01/20 13 Routine gynecological examination 2010 07/18/2017 Immunizations Immunization Administration Dates Next Due (ADACEL/BOOSTRIX)(10 YR UP) TDAP VACCINE, 0.5ML, IM 07/03/2013 Influenza Vaccine Split 3+ Yrs PF IM 04/30/2013 Rho (D) IMMUNE GLOBULIN 1,500 UNIT(300 MCG) INJE CTION 04/01/2013 Family History Medical History Relation Name Comments Cancer Father Hypertension Father Respiratory Disease Maternal Grandfather Breast Cancer Mother Diabetes Mother Hearing Loss Mother Hypertension Mother Thyroid Disease Mother Cancer Paternal Grandfather Hypertension Paternal Grandfather Colon Cancer Neg Hx Ovarian Cancer Neg Hx Relation Name Status Comments Father Maternal Grandfather Mother Paternal Grandfather Social History Tobacco Use Types Packs/Day Years Used Date Smoking Tobacco: Never Smokeless Tobacco: Never Tobacco Cessation:Counseling Given: No Alcohol Use Standard Drinks/Week Comments Yes 0 (1 standard drink = 0.6 oz pur e alcohol) Comments No Sex and Gender Information Value Date Recorded Sex Assigned at Not on file Legal Sex Female 3:35 AM FINANCIAL AID ADMINISTRATOR Gender Identity Not on file Sexual Orientation Not on file Occupation Industry Job Start Date Job End Date Not on file Not on file Not on file Not on file Last Filed Vital Signs Vital Sign Reading Time Taken Comments Blood Pressure 119/77 01/18/2021 8:49 AM CDT Pulse 82 01/17/2020 8:54 AM CDT Temperature 36.6 C (97.9 F) 05/21/2019 12:50 PM CDT Respiratory Rate 16 05/21/2019 1:22 PM CDT Oxygen Saturation 98% 05/21/2019 1:22 PM CDT Inhaled Oxygen Concentration - - Weight 112.6 kg (248 lb 3.2 oz) 01/18/2021 8:49 AM CDT Height 175.3 cm (5' 9 ) 01/18/2021 8:49 AM CDT Body Mass Index 36.65 01/18/2021 8:49 AM CDT Plan of Treatment Health Maintenance Due Date Last Done Comments HEPATITIS B VACCINES (1 of 3 - 19+ 3-dose series) 1995 BREAST CANCER SCREENING 06/09/2021 06/09/20, 06/11/2019, 05/25/2018, Additional history exists COLORECTAL SCREENING 2021 Colorectal Cancer Screening 2021 FIT-DNA Q 3 years 2021 FIT/FOBT Q 1 year 2021 Flex Sig/CT Colonography Q 5 years 2021 DTAP/TDAP/TD VACCINES (2 - T d or Tdap) 07/03/2023 07/03/2013 PAP SMEAR 07/08/2023 07/08/2020, 07/07, 07/17/2018, Additional history exists INFLUENZA VACCINE (#1) 2025 0, 04/24/2019, 06/07/2018, Additional history exists CERVICAL CANCER SCREENING 07/08/2025 HPV/Cotest (21-29) 07/08/2025 07/08/2020, 1 09/23/2018, 07/17/2018, Additional history exists HPV/Cotest (30-65) 07/08/2025 07/08/2020, 1 09/23/2018, 07/17/2018, Additional history exists Procedures Procedure Name Priority Date/Time Associated Diagnosis Comments CERV/VAG CYTO SCREEN PAP W/HPV Routine 07/08/2020 10:59 AM FINANCIAL AID ADMINISTRATOR Screening for cervical cancer MAMMO 3D PEGGY SCREEN BILAT W OR WO CAD Routine 06/09/2020 10:45 AM FINANCIAL AID ADMINISTRATOR Breast cancer screening by mammogram from Last 3 Months or Most Recently Relevant to Health Maintenance Results * CERV/VAG CYTO SCREEN PAP W/HPV (07/08/2020 10:59 AM FINANCIAL AID ADMINISTRATOR) CLINICAL INFORMATION Information not provided 2020 2:32 PM FINANCIAL AID ADMINISTRATOR [facility] LAST MENSTRUAL PERIOD INFORMATION NOT PROVIDED 2020 2:32 PM FINANCIAL AID ADMINISTRATOR [facility] PREV PAP: INFORMATION NOT PROVIDED 2020 2:32 PM FINANCIAL AID ADMINISTRATOR [facility] PREV BX: INFORMATION NOT PROVIDED 2020 2:32 PM FINANCIAL AID ADMINISTRATOR [facility] SOURCE Endocervix 2020 2:32 PM FINANCIAL AID ADMINISTRATOR [facility] ADEQUACY: SEE COMMENT 2020 2:32 PM FINANCIAL AID ADMINISTRATOR [facility] Comment: Satisfactory for evaluation. Endocervical/transformation zone component present. Age and/or menstrual status not provided PAP INTERP Negative for intraepithelial lesion or malignancy. 2020 2:32 PM FINANCIAL AID ADMINISTRATOR [facility] COMMENT This Pap test has been evaluated with computer assisted technology. 2020 2:32 PM FINANCIAL AID ADMINISTRATOR [facility] WIRE MILL OPERATOR: SEE COMMENT 2019 2:32 PM FINANCIAL AID ADMINISTRATOR [facility] Comment: KMS, CT(ASCP) CT Screening location: [place] [address] [address] [place] [id number] EXPLANATORY NOTE SEE COMMENT 020 2:32 PM [facility] Comment: EXPLANATORY NOTE: The Pap is a [...] information. HPV E6/E7 Not Detected Not Detected 2020 2:32 PM [facility] Comment: This test was performed using the APTIMA HPV Assay ([employer] This assay detects E6/E7 viral messenger RNA (mRNA) from 14 high-risk HPV types (16,18,31,33,35,39,45,51,52,56,58,59,66,68). The analytical performance characteristics of this assay have been determined by [employer]. The modifications have not been cleared or approved by the FDA. This assay has been validated pursuant to the CLIA regulations and is used for clinical purposes. Genital SWAB OF ENDOCERVIX / Unknown Collection / Unknown 07/08/2020 10:59 AM FINANCIAL AID ADMINISTRATOR 07/09/2020 11:54 AM FINANCIAL AID ADMINISTRATOR Narrative [facility] - 2020 2:32 PM FINANCIAL AID ADMINISTRATOR Performing Organization Information: Site ID: [id number] [facility] Address: [address] [address] [address] Director: Rohan Hanley D.O., MPH Site ID: [id number] Name: [facility] Address: [address] [place] [id number] Director: Steven Matt us Mercedes Reyes ASSEMBLER MECHANICAL ORDNANCE PATHOLOGY/CYTOLOGY ORDERABL ES Final Result [facility] [phone] * MAMMO SCRN BILAT 3D PEGGY W OR WO CAD (06/09/2020 10:45 AM FINANCIAL AID ADMINISTRATOR) Anatomical Region Laterality Modality Breast Bilateral Mammography Narrative 06/10/2020 8:57 AM FINANCIAL AID ADMINISTRATOR Bilateral Digital Mammogram with CAD and 3D Tomography Reason for Exam: Screening Comparison: Compared to: 06/11/2019 MAMMO SCRN BILAT 3D PEGGY W OR WO CAD, 05/25/2018 MAMMO DIAG BILAT 3D PEGGY W OR WO CAD, 07/18/2017 MAMMO SCREEN BILAT W OR WO CAD, 04/01/2016 MAMMO DIGITAL SCREEN BILAT, and 07/19/2011 MAMMO PRIOR STUDY Technique: 3D MLO and CC digital tomosynthesis images were acquired and synthesized 2D images (C view) were generated. This digital mammogram was also analyzed by the Computer Aided Detection System CAD). Breast Composition: There are scattered areas of fibroglandular density. There are no suspicious masses, areas of architectural distortions, or microcalcifications to suggest malignancy. Bilateral reduction mammoplasty scars are present. No significant new findings since the prior mammogram(s). Mary Asher [facility] MAMMO ORDERABLES Final Resu lt from Last 3 Months or Most Recently Relevant to Health Maintenance Insurance MED PAY Advance Directives For more information, please contact: [phone] * Full Code (Latest Code Status on File) Date Activated Date Inactivated Comments 07/01/2013 1:19 PM 07/03/2013 3:15 PM * Full Code Date Activated Date Inactivated Comments 07/01/2013 5:13 AM 07/01/2013 1:19 PM * Full Code Date Activated Date Inactivated Comments 06/30/2013 7:19 AM 07/01/2013 5:13 AM Care Teams Laboratory Immunologist Relationship Specialty Start Date End Date Kimo Sanchez MD [address] [address] PCP - General 07/22/04
--- NOTE | 2025-06-17 15:07 | XR_ITS ---
WS: [id number] Exam: XR chest 1V portable [id number] Date/Time of Exam: 06/17/2025 3:27 PM Reason For Exam: tachycardia Comparison 05/23/2017. Lungs are clear. Normal cardiomediastinal silhouette and regional bony elements. No pleural effusion. XR/XR chest 1V portable [id number] IMPRESSION: 1. Normal chest.
--- NOTE | 2025-06-17 15:07 | W.ED.ARRPALP ---
HPI - Arrhythmia/Palpitations General: Chief Complaint: Arrhythmia/Palpitations Stated Complaint: [facility] sent, high hr Time Seen by Provider: 06/17/25 15:07 Source: patient Mode of arrival: ambulatory Limitations: no limitations History of Present Illness: Patient is a 49-year-old female with a history of anxiety, acid reflux, Misbah's disease here after she was seen at [facility] and told to come to the emergency department due to her heart rate being elevated. Patient states while at work today she began feeling like her heart was racing/beating fast . She states she had a similar episode on Monday when her [employer] iWatch told her her heart rate was in the 120s. Patient states during these episodes she feels like she cannot fully take a deep breath. Patient states in between episodes she is asymptomatic. She has not been ill recently. No recent surgeries. She is not complaining of leg swelling or calf pain. No history of DVT/PE. EKG was obtained in triage showing sinus tachycardia at 126. Patient does tell me she has had symptoms before (earlier this year) prompting her PCP Dr. Sanchez to order Holter monitor imaging. This was completed and results below: *The predominant rhythm was Sinus. *The Maximum Heart Rate recorded was 158 bpm, 11/26 14:58:27, the Minimum Heart Rate recorded was 65 bpm, 11/28 05:29:32, and the Average Heart Rate was 97 bpm. *There were 2 VE beats with a burden of <1 %. *There were 35 SVE beats with a burden of <1 %. There was 1 occurrence of Supraventricular Tachycardia with the Fastest episode 139 bpm, 11/28 07:47:23, and the Longest episode 3 beats, 11/28 07:47:23. *There were 3 Patient Triggers. All triggered events were consistent with sinus rhythm, Patient was feeling chest pressure Electronically Signed On 12-14-2024 18:23:44 CDT by JESSICA RHODES [email or web address] Dictated By: Jessica Rhodes MD Signed By: Jessica Rhodes MD, MD complaint: rapid heart beat and heart racing Onset (ago): hour(s) Duration: intermittent Severity: moderate Context: occurred during rest Associated symptoms: Reports short of breath; Deny nausea, pre-syncope, syncope or vomiting Related Data Home Medications ?Medication ?Instructions ?Recorded ?Confirmed pantoprazole 40 mg tablet,delayed 40 mg PO DAILY PRN Acid Reflux 08/11/21 06/17/25 release prednisone 5 mg tablet 5 mg PO DAILY 04/06/22 06/17/25 alprazolam 0.25 mg tablet 0.25 mg PO TID PRN Anxiety 11/12/23 06/17/25 ergocalciferol (vitamin D2) 1,250 1,250 mcg PO Q14D 11/12/23 06/17/25 mcg (50,000 unit) capsule (Vitamin D2) linaclotide 145 mcg capsule 145 mcg PO QAM 11/12/23 06/17/25 (Linzess) Cmp Tirzepatide 50 units SUBCUT Q7D 06/17/25 06/17/25 cholecalciferol (vitamin D3) 50 50 mcg PO DAILY 06/17/25 06/17/25 mcg (2,000 unit) tablet (Vitamin D3) glucosamine sulf dipot 1 cap PO DAILY 06/17/25 06/17/25 chlr,msm,chond 550 mg-C 30 mg-jazmine 1 mg capsule (Glucosamine Chondroitin) magnesium glycinate 120 mg (as 240 mg PO DAILY 06/17/25 06/17/25 glycinate) capsule vitamin B complex 1 tab PO DAILY 06/17/25 06/17/25 Allergies Allergy/AdvReac Type Severity Reaction Status Date / Time tramadol Allergy ADR-Itching Verified 06/17/25 15:06 Review of Systems Const: Denies: fever(s), chills, body aches, fatigue or malaise Card: Reports: palpitations (racing heart rate-intermittent) and irregular heart rhythm (states her iwatch has told her she has been in atrial fib before); Denies: chest pain, edema, swelling of feet/ankles, lightheadedness, syncope, pre-syncope, dyspnea on exertion, orthopnea, leg pain with exertion or acrocyanosis Resp: Reports: other (feels like she cannot take a deep breath during these episodes ); Denies: dyspnea or chest congestion GI: Denies: abdominal pain, nausea, vomiting or diarrhea : Denies: flank pain, dysuria or hematuria Musc: Denies: neck pain, back pain, extremity pain, extremity swelling or joint swelling Skin/Breast: Denies: rash Neuro: Denies: headache(s), numbness in extremities, weakness in extremities, sensory changes or dizziness PFSH ED PFSH: Medical History Misbah disease Surgical History H/O knee surgery History of nasal surgery Hx of breast reduction, elective Family History Other Squamous cell cancer of external ear Social History Smoking and tobacco/nicotine status: never used tobacco/nicotine Alcohol intake: current Alcohol intake frequency: few times a month Physical Exam Const: COMMON NORMALS: no acute distress, average body habitus, patient oriented x3, no limitations, healthy appearing, alert and well nourished GENERAL APPEARANCE: cooperative ORIENTATION/CONSCIOUSNESS: Yes awake, Yes oriented to person, Yes oriented to place and Yes oriented to time HENMT: COMMON NORMALS: normocephalic and atraumatic HEAD & SCALP: normal to inspection, normocephalic and atraumatic Neck/C-Spine: COMMON NORMALS: full ROM, no lymphadenopathy, supple, no meningeal signs and no JVD Chest: COMMONS NORMALS: normal inspection of the chest Resp: COMMON NORMALS: normal respiratory effort and clear to auscultation bilaterally AUSCULTATION: clear to auscultation bilaterally Cardio: COMMON NORMALS: no JVD and regular rhythm RATE: tachycardic (sinus tachycardia-around 106-112 during my exam) RHYTHM: regular rhythm GI: COMMON NORMALS: Normal to inspection, nondistended, normoactive bowel sounds present, Soft to palpation, non-tender, No hepatosplenomegaly present and no masses PALPATION: Yes Soft to palpation and Yes No hepatosplenomegaly present : COMMON NORMALS: Yes no CVA tenderness BLADDER/KIDNEY EXAM: Yes no CVA tenderness Back/Pelvis: COMMON NORMALS: no CVA tenderness and thoracic and lumbar spine normal to inspection Extremity: COMMON NORMALS: normal to inspection, capillary refill normal, no clubbing, cyanosis or edema, no calf tenderness and no pedal edema GENERAL: Yes normal exam except as noted Neuro: COMMON NORMALS: patient oriented x3, moves all extremities, no focal motor deficits, no sensory deficits noted and gait normal SENSORIUM/ORIENTATION: Yes alert, Yes oriented to person, Yes oriented to place and Yes oriented to time MENINGEAL SIGNS: Yes no meningeal signs Skin: COMMON NORMALS: no rashes or lesions noted GENERAL SKIN EXAM: no rashes or lesions noted Course Vital Signs: Vital signs: Vital Signs Temperature 97.6 F 06/17/25 14:59 Pulse Rate 83 06/17/25 16:06 Respiratory Rate 18 06/17/25 14:59 Blood Pressure 113/85 06/17/25 16:06 Pulse Oximetry 97 06/17/25 16:06 Oxygen Delivery Me thod Room Air 06/17/25 16:06 MDM - Arrhythmia/Palpitations Medical Decision Making Patient is a 49-year-old female here for what sounds to be intermittent episodes of tachycardia. She had an episode on Monday evening and another one today. She arrives with an EKG showing sinus tachycardia at 126. Upon reevaluation at time of discharge her heart rate now is down in the 90s. This sounds like this has been an ongoing issue as she has had a Holter monitor back in November it was similar symptoms. She is asymptomatic in between episodes. Blood work overall is unremarkable-scant elevation to her d-dimer at 0.62. I do not have a large suspicion for PE. CXR is normal. I think it is reasonable for her to follow-up with cardiology. She is requesting [facility]. Return to ED precautions discussed. Differential Diagnosis Likely palpitations, anxiety, artial fibrillation and supraventricular tachycardia Medical Records I reviewed the patient's medical records. Lab Data I reviewed the patient's lab results. 06/17/25 15:20 06/17/25 15:20 Radiology Impressions Chest X-Ray 06/17/25 15:07 IMPRESSION: 1. Normal chest. Laboratory Results WBC 8.63 10^3/uL (3.29-11.43) 06/17/25 15:20 RBC 4.05 10^6/uL (3.85-5.65) 06/17/25 15:20 Hgb 11.90 g/dL (11.27-16.99) 06/17/25 15:20 Hct 35.0 % (36-47) L 06/17/25 15:20 MCV 86.4 fl (85-98) 06/17/25 15:20 MCH 29.4 pg (27-33) 06/17/25 15:20 MCHC 34.0 g/dL (30-55) 06/17/25 15:20 RDW 13.1 % (12.1-15.1) 06/17/25 15:20 Plt Count 279 10^3/cmm (157-399) 06/17/25 15:20 MPV 10.0 fL (7.4-10.4) 06/17/25 15:20 Neut % (Auto) 58.0 % 06/17/25 15:20 Lymph % (Auto) 34.6 % 06/17/25 15:20 [place] % (Auto) 5.3 % 06/17/25 15:20 Eos % (Auto) 1.4 % 06/17/25 15:20 Baso % (Auto) 0.5 % 06/17/25 15:20 Neut # (Auto) 5.00 10^3/uL (1.8-7.7) 06/17/25 15:20 Lymph # (Auto) 3.0 10^3/uL (0.8-4.8) 06/17/25 15:20 [place] # (Auto) 0.5 10^3/uL (0.2-0.9) 06/17/25 15:20 Eos # (Auto) 0.1 10^3/uL (0.0-0.8) 06/17/25 15:20 Baso # (Auto) 0.0 10^3/uL (0.0-0.1) 06/17/25 15:20 Nucleated RBC % (auto) 0 % 06/17/25 15:20 Nucleated RBCs # 0.0 /100WBC 06/17/25 15:20 D-Dimer 0.62 ug/mLFEU (0-0.59) H 06/17/25 15:20 Sodium 138 mmol/L (136-145) 06/17/25 15:20 Potassium 3.6 mmol/L (3.5-5.1) 06/17/25 15:20 Chloride 103 mmol/L (98-107) 06/17/25 15:20 Carbon Dioxide 21 mmol/L (22-29) L 06/17/25 15:20 Anion Gap 17.6 (5-19) 06/17/25 15:20 BUN 11 mg/dL (6-20) 06/17/25 15:20 Creatinine 0.7 mg/dL (0.5-0.9) 06/17/25 15:20 GFR Calculation 89.3 mL/min (90-130) L 06/17/25 15:20 Glucose 112 mg/dL (65-115) 06/17/25 15:20 Calculated Osmolality 286 mOsm/kg (285-295) 06/17/25 15:20 Calcium 9.4 mg/dL (8.5-10.5) 06/17/25 15:20 Total Bilirubin 0.3 mg/dL (0.15-1.2) 06/17/25 15:20 AST 15 U/L (0-32) 06/17/25 15:20 ALT 13 U/L (0-33) 06/17/25 15:20 Alkaline Phosphatase 65 U/L (35-105) 06/17/25 15:20 NT-Pro-B Natriuret Pep < 36 pg/mL (0-125) 06/17/25 15:20 Total Protein 7.5 g/dL (6.6-8.7) 06/17/25 15:20 Albumin 4.5 g/dL (3.5-5.2) 06/17/25 15:20 Globulin 3.0 g/dL (1.3-4.6) 06/17/25 15:20 TSH 1.41 uIU/mL (0.27-4.20) 06/17/25 15:20 HCG, Qual Negative (Negative) 06/17/25 15:20 Urine Color Yellow (Yellow) 06/17/25 15:11 Urine Appearance Clear (CLEAR) 06/17/25 15:11 Urine pH 7.0 (5-7) 06/17/25 15:11 Ur Specific Wendel 1.006 (1.005-1.030) 06/17/25 15:11 Urine Protein Negative (Negative) 06/17/25 15:11 Urine Glucose (UA) Negative (Normal) 06/17/25 15:11 Urine Ketones Negative (Negative) 06/17/25 15:11 Urine Blood Trace (Negative) A 06/17/25 15:11 Urine Nitrate Negative (Negative) 06/17/25 15:11 Urine Bilirubin Negative (Negative) 06/17/25 15:11 Urine Urobilinogen 0.2 mg/dL (Negative) 06/17/25 15:11 Ur Leukocyte Esterase Negative (Negative) 06/17/25 15:11 Urine RBC 0-2 /hpf (0-2) 06/17/25 15:11 Urine WBC 0-5 /hpf (0-5) 06/17/25 15:11 Ur Squamous Epith Cells 0-5 /hpf (0-5) 06/17/25 15:11 Amorphous Sediment Not Reportable 06/17/25 15:11 Urine Bacteria None seen /hpf (NONE) 06/17/25 15:11 Hyaline Casts 0-4 /lpf H 06/17/25 15:11 All radiology interpretation(s) finalized by discharge Discharge Plan Discharge Patient Disposition: Home Clinical Impression: Paroxysmal sinus tachycardia Condition: Stable Prescriptions: No Action pantoprazole 40 mg tablet,delayed release (DR/EC) 40 mg PO DAILY PRN (Reason: Acid Reflux) prednisone 5 mg tablet 5 mg PO DAILY alprazolam 0.25 mg tablet 0.25 mg PO TID PRN (Reason: Anxiety) ergocalciferol (vitamin D2) [Vitamin D2] 1,250 mcg (50,000 unit) capsule 1,250 mcg PO Q14D Rx Instructions: ON MONDAY Linzess 145 mcg capsule 145 mcg PO QAM B Complex Tablet Extended Release 1 tab PO DAILY cholecalciferol (vitamin D3) [Vitamin D3] 50 mcg (2,000 unit) Tablet 50 mcg PO DAILY Glucosamine Chondroitin 550-30-1 mg Capsule 1 cap PO DAILY magnesium glycinate 120 mg Capsule 240 mg PO DAILY Cmp Tirzepatide 50 units SUBCUT Q7D Rx Instructions: Monday Discharge Orders: Discharge ED (Routine); Ordered 06/17/25 Ordered By: Renetta Alicea Referrals: Kimo Sanchez MD [Primary Care Provider, Family Practice] Patient Instructions: Patient Portal & Charles Instructions Activity Restrictions/Additional Instructions: As we discussed, I will place a referral for [facility] cardiology for further evaluation. You can continue to follow-up with primary care as needed. You may return the emergency department for worsening symptoms, severe chest pain, shortness of breath, difficulty breathing, passing out episodes, or any other concerns you may have. Print Language: Kiswahili Coding Level of Care Code ED Structural Designer for Vickie Sampson
[2025-06-17 15:15] VITALS: BP 135/108; PULSE 106; O2SAT 97
[2025-06-17 15:19] LABS: Glucose Urine UA Negative (Normal); Nitrate Urine Negative (Negative); Specific Gravity, Urine 1.006 (1.005-1.030)
[2025-06-17 15:22] LABS: Add Urine Microscopic? YES
[2025-06-17 15:34] LABS: Hematocrit 35.0 % (36-47); Hemoglobin 11.90 g/dL (11.27-16.99); Mean Corpuscular HGB Conc 34.0 g/dL (30-55); Mean Corpuscular Hemoglobin 29.4 pg (27-33); Mean Corpuscular Volume 86.4 fl (85-98); Nucleated Red Blood Cells % 0 %; Platelet Count 279 10^3/cmm (157-399); Red Blood Count 4.05 10^6/uL (3.85-5.65); White Blood Count 8.63 10^3/uL (3.29-11.43)
[2025-06-17 15:48] LABS: HCG, Serum Qual Negative (Negative)
[2025-06-17 16:06] VITALS: BP 113/85; PULSE 83; O2SAT 97
[2025-06-17 16:07] LABS: Alanine Aminotransferase 13 U/L (0-33); Albumin Level 4.5 g/dL (3.5-5.2); Alkaline Phosphatase 65 U/L (35-105); Anion Gap 17.6 (5-19); Aspartate Amino Transferase 15 U/L (0-32); Blood Urea Nitrogen 11 mg/dL (6-20); Calcium 9.4 mg/dL (8.5-10.5); Carbon Dioxide 21 mmol/L (22-29); Chloride 103 mmol/L (98-107); Creatinine Clr Calc Pharmacy 123.5622; Globulin 3.0 g/dL (1.3-4.6); Glucose 112 mg/dL (65-115); NT Pro B Type Natriuretic Pept < 36 pg/mL (0-125); Osmolality Calculated 286 mOsm/kg (285-295); Potassium 3.6 mmol/L (3.5-5.1); Sodium 138 mmol/L (136-145); Thyroid Stimulating Hormone 1.41 uIU/mL (0.27-4.20); Total Protein 7.5 g/dL (6.6-8.7)
[2025-06-17 16:53] VITALS: BP 129/91; PULSE 91; O2SAT 100
--- NOTE | 2025-06-18 15:22 | DCPLANNER ---
referral sent to [facility]
== END 2025-06-17 16:54 | disposition home or self-care (01) ==
PROVIDERS: Emergency Provider Physician Assistant; PCP Family Medicine
DX: I47.19 Other supraventricular tachycardia (principal)
CPT/HCPCS: 36415; 71045; 80053; 81001; 83880; 84443; 84703; 85025; 85378; 93005; 99285